=== PATIENT | female | born 1930 | race Caucasian/White ===

== ENCOUNTER 2016-11-18 14:02 | Inpatient (IN) | payer OTHER, MEDICARE ==
[2016-11-18] MEDS ORDERED: NORMAL SALINE 10 ML SYRINGE FLUSH IVP PRN ×2 (14:21→18:09)
[2016-11-18] MEDS ORDERED: Sodium Chloride 0.9% 1,000 ML PRIMARY IV ONE (14:21)
--- NOTE | 2016-11-18 14:32 | PDOC ---
General Adult HPI - General Chief Complaint: Abdomen Pain Stated Complaint: C-DIFF, NAUSEA Date Seen by Provider: 11/18/16 Time Seen by Provider: 14:20 Source: POSITIVE: Patient, Other (daughter) Exam Limitations: POSITIVE: No limitations Nurse's Notes Reviewed & Considered: Yes - History of Present Illness Initial Comment: The patient is an 86-year-old female who is brought to the emergency department with complaints of increased weakness and continued diarrhea. She states that she has had issues with loose watery stools since September. She was diagnosed with C. difficile last week and started on metronidazole. She took the metronidazole for a total of 3 days however she discontinued the medication because she thought that it was upsetting her stomach worse and causing increased diarrhea and fevers. She has not taken any of the metronidazole the last couple of days. She went to Ivett Henao's office for follow-up today. Their she had a low-grade fever with a temperature of 100.1. She appeared to be clinically dehydrated and her blood pressure was only in the 90s. She subsequently was transferred here to the emergency room for evaluation. The patient is vague regarding her history. She does continue to have diarrhea however denies vomiting. She does report some intermittent abdominal pain although none currently. She denies chest pain or shortness of breath, urinary symptoms other than decreased urination. She does have decreased appetite and decreased oral intake. She has significant generalized weakness. Have you received a tetanus shot in the past 10 years?: Unknown - Patient Home Medications Home Medications: Home Medications Alpha Lipoic Acid 300 mg PO DAILY cap 12/27/12 Ascorbic Acid [Vitamin C] 1,000 mg PO TID tab 12/27/12 Calcium/Magnesium [Calcium Magnesium Tablet] 1 each PO BID tab 12/27/12 Flaxseed 340 gm PO DAILY scoop 12/27/12 Multivitamin [Daily Vitamin] 1 tab ORAL QD tab 12/27/12 Ubidecarenone [Coq-10] 30 mg PO DAILY cap 12/27/12 Cholecalciferol (Vitamin D3) [Vitamin D3] 2,000 unit PO BID #0 cap 04/03/16 Lutein 20 mg PO BID #0 cap 04/03/16 Bilberry Fruit Extract [Bilberry] 80 mg PO DAILY cap 05/21/16 Amlodipine Besylate 1 tab PO QHS #90 tab 11/21/16 Losartan/Hydrochlorothiazide [Losartan-Hctz 100-12.5 Mg Tab] 1 tab PO DAILY #90 tab 10/05/16 Difluprednate [Durezol] 1 drp RIGHT EYE BID 11/18/16 Loperamide [Imodium] 2 mg PO TID PRN 11/18/16 Metronidazole 500 mg PO TID 11/18/16 Moxifloxacin HCl [Vigamox] 1 drp LEFT EYE BID 11/18/16 Simvastatin 20 mg PO BEDTIME 11/18/16 - Patient Allergies Allergies/Adverse Reactions: Allergies Allergy/AdvReac Type Severity Reaction Status Date / Time Penicillins Allergy Intermediate RASH Verified 11/18/16 14:17 seasonal allergies Allergy Mild ITCHING Uncoded 11/18/16 14:17 Past Medical History - heen HEENT History: Macular Degeneration Cardiovascular History: Hypertension, Hyperlipidemia, Other (please comment) Additional Cardiovasular History: HEART MURMUR Respiratory History: Snoring Gastrointestinal History: Other (please comment) Additional Gastrointestinal History: DYSPHAGIA. DIFFICULTY SWALLOWING FOR SEVERAL YEARS, Genitourinary History: Denies History Endocrine History: Denies History Musculoskeletal History: Osteoporosis, Osteoarthritis Additional Musculoskeletal History: ARTHRITIS R HIP; OSTEOPOROSIS SINCE 2003; COMPRESSION FX T-11 IN 2003; FX OF BOTH WRISTS Neurological History: Denies History Blood Disorders: Denies History Psychiatric History: Denies History History of Sexually Transmitted Diseases: No Female Reproductive History: Denies History Obstetrical History: Denies History Cancer History: Skin Cancer Treatment / Date(s) of Treatment: SKIN REMOVAL In Past Year Been Physically Harmed or Verbally Threatened: No History of MDRO: No History of Other Communicable Diseases: No Tobacco Use: Never Smoker Alcohol Use: Rarely Substance Use Type: None Previous Surgical History: Yes Type / Date of Surgery: RIGHT AND LEFT WRIST PINNINGS (1994 FOR R, AND 1999 FOR LEFT). MICHELLE CATARACTS Anesthesia Reactions: No Malignant Hyperthermia: No Significant Family History: Heart disease, Hypertension, Other (please comment) Additional Family History: ALCOHOLISM/ CVA; HTN-FATHER; CHF, BROTHER. BOTH . Past Medical History Reviewed: Reviewed - No Changes ROS - Limitations ROS Limitations: No Limitations Constitution: REPORTS: Fever Cardiovascular: REPORTS: Denies Cardiac Symptoms Respiratory: REPORTS: Denies Resp Symptoms, Other (She was slightly hypoxic on arrival and was placed on oxygen per nasal cannula.) Neurological: REPORTS: Denies Neuro Symptoms Gastrointestinal: REPORTS: Abdominal Pain, Nausea, Diarrhea. DENIES: Vomitting , Black Stools, Bloody Stools Musculoskeletal: REPORTS: Denies MS Symptoms Genitourinary: REPORTS: Other (Decreased urination). DENIES: Dysuria, Difficulty Urinating Eyes: REPORTS: Denies Symptoms ENT: REPORTS: Denies Symptoms Skin: DENIES: Rash General Adult Exam - General Appearance General Appearance: POSITIVE: Alert, Cooperative, No Acute Distress, Other (She does appear ill) - HEENT HEENT: POSITIVE: Head Inspection Nml, Eyes Inspection Nml, Ears Inspection Nml, Pharynx Inspect. Nml, Dry Mucous Membranes - Neck Neck: POSITIVE: Normal Inspection. NEGATIVE: Lymphadenopathy - Respiratory Respiratory: POSITIVE: No Respiratory Distress, Breath Sounds Normal - Cardiovascular Cardiovascular: POSITIVE: Regular Rate & Rhythm, No Murmur - Abdomen Abdomen: Soft: (All Quadrants), Normal Bowel Sounds: (All Quadrants), No Guarding: (All Quadrants), No Rebound: (All Quadrants), No Palpabale Mass: (All Quadrants) Additional Abdominal Details: Her abdomen is mildly distended, she denies tenderness on exam. - Skin Skin: POSITIVE: Normal Color, No Rash - Extremities Extremity: Normal ROM: (All Extremities), Normal Inspection: (All Extremities) - Neurological / Psychological Neurological: POSITIVE: Other (No focal neurologic deficits.) General Adult Progress - Results Reviewed by me Xrays/CTs/US Reviewed by me: Yes Discussed with Radiologist: Yes Radiology Findings: Portable chest x-ray shows mild cardiomegaly with no other acute findings per radiologist. CT PE protocol is negative for PE, she does have some atelectasis in the lung bases, no other acute findings per radiologist. CT of the abdomen and pelvis shows liquid within the bowel with no other acute findings per radiologist. Lab Results Reviewed: Yes Lab Results:: Laboratory Results 11/18/16 Range/Units 14:36 WBC 6.10 (4.8-10.8) 10^3/uL RBC 4.10 L (4.20-5.40) 10^6/uL Hgb 13.3 (12.0-16.0) g/dL Hct 38.6 (37.0-47.0) % MCV 94.1 (81-99) FL MCH 32.4 H (27-31) PG MCHC 34.5 (33-37) g/dL RDW Std Deviation 43.3 (39-50) fL RDW Coeff of Dena 13.0 (11.5-14.5) % Plt Count 154 (140-350) 10*3/uL MPV 9.4 (7.4-12.2) FL Immature Gran % (Auto) 0.7 (0-5) % Neut % (Auto) 69.7 (50-80) % Lymph % (Auto) 9.8 L (10-50) % [place] % (Auto) 9.8 (5-15) % Eos % (Auto) 9.5 H (0-8) % Baso % (Auto) 0.5 (0-1) % Immature Gran # (Auto) 0.04 10*3/UL Neut # (Auto) 4.25 10*3/UL Lymph # (Auto) 0.60 10*3/uL [place] # (Auto) 0.60 (0.3-0.8) 10*3/UL Eos # (Auto) 0.58 10*3/UL Baso # (Auto) 0.03 10*3/UL WBC Morphology Comment Normal morphology (NORM) Plt Morphology Comment Normal morphology (NORM) RBC Morph Comment Normal morphology (NORM) D-Dimer 15.81 H (0.00-0.59) mg/L Sodium 127 L (135-145) meq/L Potassium 3.3 L (3.8-5.2) meq/L Chloride 91 L (98-112) meq/L Carbon Dioxide 28 (23-33) meq/L Anion Gap 8 (5-20) BUN 28 H (7-22) mg/dL Creatinine 0.8 (0.50-1.20) mg/dL Estimated GFR Group Activities Aide BUN/Creatinine Ratio 35.00 H (6-20) Glucose 93 (78-110) mg/dL Calculated Osmolality 269.0 (267-292) mOsm/kg Lactic Acid 0.8 (0.70-2.10) MMOL/L Calcium 8.1 L (8.7-10.7) mg/dL Magnesium 2.1 (1.6-2.4) mg/dL Total Bilirubin 0.8 (0.3-1.2) mg/dL AST 37 (8-39) IU/L ALT 42 (9-52) IU/L Alkaline Phosphatase 40 (38-126) IU/L Troponin I 0.030 (< 0.040) ng/mL C-Reactive Protein 1.6 H (0.0-0.9) mg/dL Total Protein 6.2 (6.1-8.0) g/dL Albumin 3.4 L (3.5-4.8) g/dL Globulin 2.8 (2.50-4.10) g/dL Albumin/Globulin Ratio 1.20 L (1.3-2.0) mg/g - Patient's Progress MDM / ED Course: She was slightly hypoxic on arrival and was placed on O2 per nasal cannula. An IV was established and blood cultures/lactate were drawn. She received 1 L bolus of normal saline. Lab work revealed a markedly elevated d-dimer. Her sodium, potassium and calcium were also low. A CT PE protocol was ordered and was negative for PE. She did have atelectasis in the lung bases which may explain her hypoxia. In addition CT scan of the abdomen and pelvis revealed no acute findings other than liquid within the bowel. She does have known C. difficile. She also appears to be clinically dehydrated and her sodium and potassium are low. She is quite weak as well. She will be admitted for continued hydration and further treatment of C. difficile. Dr. Lynch has agreed to admit the patient. The patient and her family are in agreement with this plan. - Consult Counseled: POSITIVE: Patient, Family, RE: Lab Results, RE: Radiology Results, RE : DX Patient Care Time - Estimated PCT Patient Care Time (In Minutes): 45 Vital Signs - Recent Vital Signs Vital Signs: Vital Signs (Last 8 hours) Temp Pulse Resp BP Pulse Ox 11/18/16 14:03 98.2 F 77 20 98/65 92 - VS Reviewed Vital Signs Reviewed: Yes Discharge Clinical Impression: C. difficile diarrhea, Dehydration, Generalized weakness, Hyponatremia, Hypokalemia Discharge Disposition: Admit to Inpatient Condition: Fair Date Decision to Admit to Inpatient: 11/18/16 Time Decision to Admit to Inpatient: 16:50
[2016-11-18 14:38] LABS: BASOPHILS # (AUTO) 0.03 10*3/UL; BASOPHILS % (AUTO) 0.5 % (0-1); EOSINOPHILS % (AUTO) 9.5 % (0-8); HEMATOCRIT 38.6 % (37.0-47.0); HEMOGLOBIN 13.3 g/dL (12.0-16.0); IMM GRAN % (AUTO) 0.7 % (0-5); IMM GRAN# (AUTO) 0.04 10*3/UL; LYMPHOCYTES % (AUTO) 9.8 % (10-50); MEAN CORPUSCULAR HEMOGLOBIN 32.4 PG (27-31); MEAN CORPUSCULAR HGB CONC 34.5 g/dL (33-37); MEAN PLATELET VOLUME 9.4 FL (7.4-12.2); MONOCYTES % (AUTO) 9.8 % (5-15); NEUTROPHILS # (AUTO) 4.25 10*3/UL; NEUTROPHILS % (AUTO) 69.7 % (50-80)
[2016-11-18 14:39] LABS: PLATELET MORPHOLOGY COMMENT NORMAL MORPHOLOGY (NORM)
[2016-11-18 14:54] LABS: ASPARTATE AMINO TRANSFERASE 37 IU/L (8-39); BILIRUBIN,TOTAL 0.8 mg/dL (0.3-1.2); BLOOD UREA NITROGEN 28 mg/dL (7-22); CALCIUM 8.1 mg/dL (8.7-10.7); CHLORIDE 91 meq/L (98-112); CREATININE 0.8 mg/dL (0.50-1.20); GLUCOSE 93 mg/dL (78-110); POTASSIUM 3.3 meq/L (3.8-5.2); SODIUM 127 meq/L (135-145); TOTAL PROTEIN 6.2 g/dL (6.1-8.0)
[2016-11-18 14:55] LABS: C-REACTIVE PROTEIN 1.6 mg/dL (0.0-0.9); LACTATE 0.8 MMOL/L (0.70-2.10); MAGNESIUM 2.1 mg/dL (1.6-2.4)
--- NOTE | 2016-11-18 14:59 | DI ---
XR CXR 1VW,11/18/2016 2:23 PM: Clinical History: Shortness of breath. Previous Exam: January 30, 2007 Findings: A single frontal radiograph of the chest is obtained, and demonstrates mild cardiomegaly. The lungs a re clear. The bony thorax is unremarkable. Impression: Mild cardiomegaly otherwise unremarkable.
--- NOTE | 2016-11-18 16:10 | DI ---
CT ABD W/CN AND PELVIS W/CN,11/18/2016 3:04 PM: Clinical History: Fever, abdominal pain and diarrhea. Previous Exam: September 17, 2015 bone density Findings: Multiple helically acquired CT images are obtained through the abdomen and pelvis following the admin istration of intravenous contrast. The urinary bladder is unremarkable. The uterus and ovaries are also unremarkable. The spleen, adrenals, liver and gallbladder are unremarkable. There are multiple bilateral simple renal cysts. There are also multiple renal hypodensities which ar e too small to characterize. The pancreas is unremarkable. There is cardiomegaly noted and coronary artery calcifications. There is some small pleural effusions and subsegmental atelectasis. Diffuse degenerative changes are noted. There is a compression deformity of the T11 vertebral body. Diffuse peripheral vascular calcifications are seen. There is no mesenteric nor retroperitoneal lymphadenopathy. Impression: 1. No acute intra-abdominal pathology. 2. Multiple bilateral renal cysts. 3. There is a compression deformity of the T11 vertebral body.
--- NOTE | 2016-11-18 16:24 | DI ---
CT CTA CHEST NONCORONARY W/WO,11/18/2016 3:04 PM: Clinical History: Hypoxia and elevated d-dimer. Previous Exam: None at this facility. Findings: Multiple helically acquired CT images are obtained through the chest following the intravenous admini stration of 75 cc of Isovue 300. The thyroid is unremarkable. Degenerative changes of the shoulders and acromioclavicular joints are seen. Degenerative changes of the posterior articulating facets are noted as well. There is mild diffuse osteopenia of the thoracic spine. There is subsegmental atelectasis in the lung bases and small bilateral pleural effusions. There is cardiomegaly and coronary artery disease. The aorta is unremarkable. The pulmonary arteries are normal without filling defect or truncation. Impression: 1. Mild subsegmental atelectasis in the lung bases. 2. No evidence of pulmonary embolism.
--- NOTE | 2016-11-18 17:37 | EKG ---
[address] [address] Measurements Intervals [place] Rate: 74 P: 58 WV: 185 QRS: -3 QRSD: 120 T: 49 QT: 402 QTc: 429 Interpretive Statements SINUS RHYTH INTRAVENTRICULAR CONDUCTION DELAY No previous ECG available for comparison Electronically Signed On 11-19-16 09:08:32 MST by Zaid Zaldivar [email or web address]
--- NOTE | 2016-11-18 18:26 | PDOC ---
History and Physical - History of Present Illness Date and Time of Service: 11/18/2016 6 PM Chief Complaint: Weakness and decreased appetite the last 3 days, diarrhea since September 24 History of Present Illness: This is a 86 years old female with medical history significant for history of hypertension, hyperlipidemia, osteoporosis, cataract and macular degeneration who came into the hospital because of weakness that's been going on for 3 days and also decreased appetite. She said that she started to have diarrhea probably September 24 about once or twice bowel movements a day no bleeding and no abdominal pain she did not see anybody about it until last week when she saw Dr. Castelan she had stool test and that showed C. difficile she was started on metronidazole on Wednesday however she started to develop nausea and she didn't feel well with weakness and decreased appetite so she quit taking the medication yesterday. Because she continued to feel weak and not feeling well she came into the ER. Evaluation in the ER revealed hyponatremia and hypokalemia and hence the admission. She is denying abdominal pain, no chest pain, no shortness of breath. Past Medical History Medical History: 1. Hypertension. 2. Osteoporosis. 3. Hyperlipidemia. 4. Macular degeneration. 5. Recent cataract surgery Surgical History: 1. Cataract surgery. 2. History of wrist fracture Family History: Reviewed an Not Pertinent Past Social History: She lives by herself, doesn't smoke doesn't drink. She is independent with her activities. Tobacco Use: Never Smoker Substance Use Type: None Alcohol Use: None Medication / Allergies Home Medications: Home Medications Medication Instructions Recorded Confirmed Type Alpha Lipoic Acid 300 mg PO DAILY cap 12/27/12 11/18/16 History Ascorbic Acid [Vitamin C] 1,000 mg PO TID tab 12/27/12 11/18/16 History Calcium/Magnesium [Calcium 1 each PO BID tab 12/27/12 11/18/16 History Magnesium Tablet] Flaxseed 340 gm PO DAILY scoop 12/27/12 11/18/16 History Multivitamin [Daily Vitamin] 1 tab ORAL QD tab 12/27/12 11/18/16 History Ubidecarenone [Coq-10] 30 mg PO DAILY cap 12/27/12 11/18/16 History Cholecalciferol (Vitamin D3) 2,000 unit PO BID #0 cap 04/03/11/18/16 Clinic [Vitamin D3] Lutein 20 mg PO BID #0 cap 04/03/16 11/18/16 Clinic Bilberry Fruit Extract [Bilberry] 80 mg PO DAILY cap 05/21/16 11/18/16 History Amlodipine Besylate 1 tab PO QHS #90 tab 10/05/16 11/18/16 Clinic Losartan/Hydrochlorothiazide 1 tab PO DAILY #90 tab 10/05/16 11/18/16 Clinic [Losartan-Hctz 100-12.5 Mg Tab] Difluprednate [Durezol] 1 drp RIGHT EYE BID 11/18/16 11/18/16 History Loperamide [Imodium] 2 mg PO TID PRN 11/18/16 11/18/16 History Metronidazole 500 mg PO TID 11/18/16 11/18/16 History Moxifloxacin HCl [Vigamox] 1 drp LEFT EYE BID 11/18/16 11/18/16 History Simvastatin 20 mg PO BEDTIME 11/18/16 11/18/16 History Allergies/Adverse Reactions: Allergies Allergy/AdvReac Type Severity Reaction Status Date / Time Penicillins Allergy Intermediate RASH Verified 11/19/16 06:38 seasonal allergies Allergy Mild ITCHING Uncoded 11/19/16 06:38 Review of Systems - Review of Systems All Systems: Reviewed & No Additional Complaints Except as Stated Exam - Vitals Vital Signs: Vital Signs Temperature 98.6 F Temperature Source Temporal Artery Scan Pulse Rate 78 Respiratory Rate 20 Blood Pressure 95/58 Pulse Ox 95 Height 5 ft 1 in Weight 168 lb 4.8 oz - General General Appearance: POSITIVE: No Acute Distress, Cooperative - Head Head Exam: POSITIVE: Normal Inspection, Atraumatic - Eye Eye Exam: POSITIVE: Normal Appearance - ENT ENT Exam: POSITIVE: Normal Exam - Neck Neck Exam: POSITIVE: Normal Inspection - Respiratory Respiratory Exam: POSITIVE: Clear to Auscultation - Bilaterally - Cardiovascular Cardiovascular Exam: POSITIVE: RRR - GI/Abdominal GI/Abdominal Exam: POSITIVE: Normal Bowel Sounds, Non Tender, Non Distended, Soft - Rectal Rectal Exam: POSITIVE: Deferred - External Exam: POSITIVE: Deferred - Extremities Extremities Exam: POSITIVE: Normal Inspection - Back Back Exam: POSITIVE: Normal Inspection - Neurological Neurological Exam: POSITIVE: Alert, Oriented x 3, CN II-XII Intact, Moves All Extremities Equally - Psychiatric Psychiatric Exam: POSITIVE: Normal Affect Results - Labs CBC and BMP: 11/19/16 06:25 11/19/16 06:25 Assessment and Plan - Patient Problems (1) Dehydration Current Visit: Yes Status: Acute Comment: Probably secondary to C. difficile infection will continue hydration repeat her labs tomorrow. (2) C. difficile diarrhea Current Visit: Yes Status: Acute Comment: She did not tolerate the metronidazole will put her on vancomycin (3) Hypokalemia Current Visit: Yes Status: Acute Comment: Will replace her electrolytes (4) Hyponatremia Current Visit: Yes Status: Acute Comment: Secondary to dehydration I think it will improve with hydration. (5) Hypertension Current Visit: Yes Status: Acute Comment: I think we'll hold her blood pressure medications and see what's her blood pressure tomorrow and then will decide about when to restart her medications
[2016-11-18] MEDS: Vancomycin Oral Soln 125 MG/5 ML (7500MG/300ML) BOTTLE PO SCH (19:19)
[2016-11-18] MEDS: LUTEIN 20 MG PO SCH (20:55)
[2016-11-18] MEDS: MOXIFLOXACIN LEFT EYE SCH (20:56)
[2016-11-18] MEDS: DIFLUPREDNATE RIGHT EYE SCH (20:56)
[2016-11-18] MEDS: Simvastatin Tab 20 MG TAB PO SCH (21:39)
[2016-11-19] MEDS: Vancomycin Oral Soln 125 MG/5 ML (7500MG/300ML) BOTTLE PO SCH ×4 (00:40→17:46)
[2016-11-19 06:49] LABS: BASOPHILS # (AUTO) 0.02 10*3/UL; BASOPHILS % (AUTO) 0.4 % (0-1); EOSINOPHILS % (AUTO) 19.2 % (0-8); HEMATOCRIT 34.8 % (37.0-47.0); HEMOGLOBIN 11.7 g/dL (12.0-16.0); IMM GRAN % (AUTO) 0.2 % (0-5); IMM GRAN# (AUTO) 0.01 10*3/UL; LYMPHOCYTES # (AUTO) 0.75 10*3/uL; LYMPHOCYTES % (AUTO) 15.8 % (10-50); MEAN CORPUSCULAR HEMOGLOBIN 31.9 PG (27-31); MEAN CORPUSCULAR HGB CONC 33.6 g/dL (33-37); MEAN PLATELET VOLUME 9.2 FL (7.4-12.2); MONOCYTES # (AUTO) 0.62 10*3/UL (0.3-0.8); MONOCYTES % (AUTO) 13.1 % (5-15); NEUTROPHILS # (AUTO) 2.44 10*3/UL; NEUTROPHILS % (AUTO) 51.3 % (50-80); RDW COEFFICIENT OF VARIATION 13.2 % (11.5-14.5); RED BLOOD COUNT 3.67 10^6/uL (4.20-5.40); WHITE BLOOD COUNT 4.75 10^3/uL (4.8-10.8)
[2016-11-19 06:56] LABS: PLATELET MORPHOLOGY COMMENT NORMAL MORPHOLOGY (NORM)
[2016-11-19 07:10] LABS: BLOOD UREA NITROGEN 21 mg/dL (7-22); CHLORIDE 101 meq/L (98-112); CREATININE 0.6 mg/dL (0.50-1.20); GLUCOSE 79 mg/dL (78-110); POTASSIUM 3.3 meq/L (3.8-5.2); SODIUM 130 meq/L (135-145)
[2016-11-19 07:11] LABS: CALCIUM 7.2 mg/dL (8.7-10.7)
--- NOTE | 2016-11-19 08:48 | PDOC(PROG) ---
Date and Time of Service: 11/19/2016 8:48 AM Interval History: Subjective Patient still feeling weak, no bowel movement yet though. No vomiting. No abdominal pain. Objective : Data - Labs CBC and BMP: 11/19/16 06:25 11/19/16 06:25 Labs - Last 24 Hours: Laboratory Results 11/19/16 Range/Units 06:25 WBC 4.75 L (4.8-10.8) 10^3/uL RBC 3.67 L (4.20-5.40) 10^6/uL Hgb 11.7 L (12.0-16.0) g/dL Hct 34.8 L (37.0-47.0) % MCV 94.8 (81-99) FL MCH 31.9 H (27-31) PG MCHC 33.6 (33-37) g/dL RDW Std Deviation 44.0 (39-50) fL RDW Coeff of Dena 13.2 (11.5-14.5) % Plt Count 148 (140-350) 10*3/uL MPV 9.2 (7.4-12.2) FL Immature Gran % (Auto) 0.2 (0-5) % Neut % (Auto) 51.3 (50-80) % Lymph % (Auto) 15.8 (10-50) % [place] % (Auto) 13.1 (5-15) % Eos % (Auto) 19.2 H (0-8) % Baso % (Auto) 0.4 (0-1) % Immature Gran # (Auto) 0.01 10*3/UL Neut # (Auto) 2.44 10*3/UL Lymph # (Auto) 0.75 10*3/uL [place] # (Auto) 0.62 (0.3-0.8) 10*3/UL Eos # (Auto) 0.91 10*3/UL Baso # (Auto) 0.02 10*3/UL WBC Morphology Comment Normal morphology (NORM) Plt Morphology Comment Normal morphology (NORM) RBC Morph Comment Normal morphology (NORM) Sodium 130 L (135-145) meq/L Potassium 3.3 L (3.8-5.2) meq/L Chloride 101 (98-112) meq/L Carbon Dioxide 25 (23-33) meq/L Anion Gap 4 L (5-20) BUN 21 (7-22) mg/dL Creatinine 0.6 (0.50-1.20) mg/dL Estimated GFR Podopediatrician BUN/Creatinine Ratio 35.00 H (6-20) Glucose 79 (78-110) mg/dL Calculated Osmolality 271.0 (267-292) mOsm/kg Calcium 7.2 L (8.7-10.7) mg/dL Objective : Exam - General General Appearance: No Acute Distress, Cooperative - Head Head Exam: Normal Inspection - Eye Eye Exam: Normal Appearance - ENT ENT Exam: Normal Exam - Neck Neck Exam: Normal Inspection - Respiratory Respiratory Exam: Clear to Auscultation - Bilaterally - Cardiovascular Cardiovascular Exam: RRR - GI/Abdominal GI/Abdominal Exam: Normal Bowel Sounds, Non Tender, Non Distended, Soft - Rectal Rectal Exam: Deferred - External Exam: Deferred - Extremities Extremities Exam: Normal Inspection - Back Back Exam: Normal Inspection - Neurological Neurological Exam: Alert - Psychiatric Psychiatric Exam: Normal Affect Assessment and Plan - Patient Problems (1) Dehydration Current Visit: Yes Status: Acute Comment: We will start cutting back on her fluid. (2) C. difficile diarrhea Current Visit: Yes Status: Acute Comment: Continue the vancomycin, she seemed to tolerate that. (3) Hypokalemia Current Visit: Yes Status: Acute Comment: Potassium still low will add oral potassium (4) Hyponatremia Current Visit: Yes Status: Acute Comment: It's improving. (5) Hypertension Current Visit: Yes Status: Acute Comment: Continue holding her blood pressure medications
[2016-11-19] MEDS ORDERED: AmLODIPine Tab 2.5 MG TABLET PO SCH (09:00)
[2016-11-19] MEDS: POTASSIUM CHLORIDE 20 MEQ TAB PO SCH ×2 (09:29→20:28)
[2016-11-19] MEDS: Multivitamin Tab 1 TAB PO SCH (09:29)
[2016-11-19] MEDS: DIFLUPREDNATE RIGHT EYE SCH ×2 (09:33→20:28)
[2016-11-19] MEDS: MOXIFLOXACIN LEFT EYE SCH (09:34)
[2016-11-19] MEDS: LUTEIN 20 MG PO SCH ×2 (12:11→20:28)
[2016-11-19] MEDS: Simvastatin Tab 20 MG TAB PO SCH (20:28)
[2016-11-20] MEDS: Vancomycin Oral Soln 125 MG/5 ML (7500MG/300ML) BOTTLE PO SCH ×4 (01:18→19:06)
[2016-11-20 06:54] LABS: CALCIUM 7.3 mg/dL (8.7-10.7); CREATININE 0.5 mg/dL (0.50-1.20); POTASSIUM 3.8 meq/L (3.8-5.2)
[2016-11-20] MEDS: ENOXAPARIN SODIUM 30 MG/0.3 ML SYRINGE SUBCUT SCH (08:49)
[2016-11-20] MEDS: Multivitamin Tab 1 TAB PO SCH (08:49)
[2016-11-20] MEDS: LUTEIN 20 MG PO SCH ×2 (08:49→20:50)
[2016-11-20] MEDS: DIFLUPREDNATE RIGHT EYE SCH ×2 (08:49→20:50)
[2016-11-20] MEDS: POTASSIUM CHLORIDE 20 MEQ TAB PO SCH ×2 (08:49→20:49)
--- NOTE | 2016-11-20 09:07 | PDOC(PROG) ---
Date and Time of Service: 11/20/2016 9 AM Interval History: Subjective She feels better compared to when she came in. She still have the diarrhea though. She had 3 bowel movements yesterday and not as loose as before. No blood. Objective : Data - Labs CBC and BMP: 11/19/16 06:25 11/20/16 06:00 Labs - Last 24 Hours: Laboratory Results 11/20/16 Range/Units 06:00 Sodium 133.0 L (135-145) meq/L Potassium 3.8 (3.8-5.2) meq/L Chloride 105.0 (98-112) meq/L Carbon Dioxide 22.0 L (23-33) meq/L Anion Gap 6.0 (5-20) BUN 12.0 (7-22) mg/dL Creatinine 0.5 (0.50-1.20) mg/dL Estimated GFR Habitat Management Coordinator BUN/Creatinine Ratio 24.00 H (6-20) Glucose 78.0 (78-110) mg/dL Calculated Osmolality 274.30 (267-292) mOsm/kg Calcium 7.3 L (8.7-10.7) mg/dL Objective : Exam - General General Appearance: No Acute Distress, Cooperative - Head Head Exam: Normal Inspection - Eye Eye Exam: Normal Appearance - ENT ENT Exam: Normal Exam - Neck Neck Exam: Normal Inspection - Respiratory Respiratory Exam: Clear to Auscultation - Bilaterally - Cardiovascular Cardiovascular Exam: RRR - GI/Abdominal GI/Abdominal Exam: Normal Bowel Sounds, Non Tender, Non Distended, Soft - Rectal Rectal Exam: Deferred - External Exam: Deferred - Extremities Extremities Exam: Normal Inspection - Back Back Exam: Normal Inspection - Neurological Neurological Exam: Alert, Oriented x 3, CN II-XII Intact, Moves All Extremities Equally - Psychiatric Psychiatric Exam: Normal Affect Assessment and Plan - Patient Problems (1) Dehydration Current Visit: Yes Status: Acute Comment: Continue fluid but at a lower rate (2) C. difficile diarrhea Current Visit: Yes Status: Acute Comment: Continue vancomycin. (3) Hypokalemia Current Visit: Yes Status: Acute Comment: This is resolved (4) Hyponatremia Current Visit: Yes Status: Acute Comment: This is improved (5) Hypertension Current Visit: Yes Status: Acute Comment: Continue holding her blood pressure medications (6) Elevated d-dimer Current Visit: Yes Status: Acute Comment: Unclear reason may be secondary to the inflammation. Her CTs were negative for PE. Will put her on prophylactic dose Lovenox. Will order ultrasound of her legs although seems less likely as there is no swelling in her legs
--- NOTE | 2016-11-20 10:56 | OT.PROG ---
Progress Note Progress Note: S: "I am weak and glad to be here, I did not feel safe at home." O: Pt. seen from 45 to 0 with pt. completing 3 sets of 10 overhead reaches using her cane with 3 min rest breaks inbetween. Reviewed spinal motions with pt. and completing 3 sets of 5 rotation R and L, lateral side-bending R and L, and flexion/extension. Pt. then taking 2 minute rest breaks inbetwen sets. pt. then completing 2 sets of 5 upper rectus strengthening exercise seated in her recliner chair in her room. Pt then completed sit to stand transfer with min A and ambulating to the bathroom to [facility] and completing toileting with supervision due to decreased safety and dynamic balance deficits. A: Pt. fatigued at the end of tx session and stating that she did not have any pain present. Pt. on C-diff precautions. P: Continue POC. Bernice Pemberton OTD, OTR/L
--- NOTE | 2016-11-20 11:34 | PT.PROG ---
Progress Note Progress Note: S. Patient stated that she is tired after working with OT. O. Patient ambulated 30 feet around the room. She performed sit to stands x 3. she was left in bed with alarm and call light. A. Patient requires min assist with balance during ambulation. Patient tolerated ambulation well, she struggles with balance and endurance. Patient would continue to benefit from skilled therapy at this time. P. Continue POC.
[2016-11-20] MEDS: ACIDOPHILUS/BULGARICUS CHEWABLE TABLET PO SCH (11:49)
--- NOTE | 2016-11-20 12:15 | PTI REPORT ---
Thank you for the referral of Rocio Aly. She was seen on 11/19/16 for an inpatient evaluation secondary to generalized weakness. SUBJECTIVE: The patient is an 86-year-old female. The patient reports she came to the ER yesterday due to feeling very weak and generally miserable. She states she has been having diarrhea consistently since early September. She states she lives at home by herself and was not using any type of assistive device or on any oxygen; however, approximately two to three days prior to coming to the emergency room she did get her single point cane out due to fear of falling. PAST MEDICAL HISTORY: Past medical history can be found in the patient's medical record. OBJECTIVE FINDINGS: Pain: The patient denies any pain at this time. Bed mobility: The patient is able to perform bed mobility with stand by assist from supine to edge of bed and edge of bed to supine. Transfers: The patient is able to perform sit to stand transfers with contact guard assist. Range of motion: Her upper extremity and lower extremity range of motion are within functional limits. Strength: Lower extremity strength at best is 4-/5 as tested in an unsupported seated position at edge of bed. Ambulation: The patient is able to perform modified tandem walking with the use of hand hold assist. Balance: The patient's standing ambulatory balance at best is fair with the use of an assistive device. ASSESSMENT: Problem List: Decreased safety Decreased strength Decreased endurance Physical Therapy Goals: To be met by discharge from inpatient: Patient will be able to perform all bed mobility and transfers independently with proper safety awareness with appropriate assistive device. Patient will be able to ambulate up to 100 feet with appropriate assistive device for household ambulation. Patient will tolerate up to 30 minutes of activity in order to return home to be independent with all prior levels of function and return to baseline level of function. TREATMENT PLAN: Patient will be seen B.I.D during the week and one time per day over the weekend as an inpatient to address the above goals and objectives. INITIAL TREATMENT: Treatment today consisted of the initial evaluation followed by the patient performing bed mobility with stand by assist from supine to edge of bed. She was able to perform sit to stand activities and tandem standing activities without oxygen on, maintaining oxygen saturation above 90% with verbal cues for pursed lipped breathing. Due to the patient's diagnosis of c.diff she will not be taken outside of her room until give the okay by her physician. ALAN
--- NOTE | 2016-11-20 16:11 | OTI REPORT ---
Thank you for the referral of Rocio Aly. She was seen on 11/19/16 for an occupational therapy inpatient evaluation secondary to weakness. SUBJECTIVE: The patient is an 86-year-old female who has had diarrhea since September 24, 2016. She says that it has become increasingly worse over the last couple of weeks. The patient [place] She does most activities on her own including dressing herself, showering, bathing, cooking her own meals, and completing house tasks. The patient reports she has not been out of bed all day today and this was at 4:30 in the afternoon. PAST MEDICAL HISTORY: Past medical history can be found in the patient's medical record. OBJECTIVE FINDINGS: Bed mobility: The patient was able to come from supine to sit with min assist. Range of motion: The patient demonstrates upper extremity range of motion that is within normal limits. Endurance: The patient does fatigue easily. Her activity tolerance is fair to poor at this time. Strength: The patient demonstrated shoulder strength of 3+/5, elbow strength of 4/5, and wrist strength of 3+/5. Pain: The patient states that her pain is mainly coming from her stomach but she is feeling better now that she started her new antibiotic. Transfers: The patient is able to transfer from sit to stand with min assist. Ambulation: The patient is able to ambulate with contact guard assist for balance. Activities of daily living: While sitting edge of bed the patient was able to complete manually resisted exercises. She was able to don and doff her socks independently. ASSESSMENT: The patient's main concern is her strength and activity tolerance. Short-Term Goals: To be met by discharge from inpatient: Patient will be able to dress self including obtaining clothes from closet independently while keeping balance. Patient will improve upper extremity strength to 4+/5 to improve abilities for functional transfers. Patient will be able to complete a shower independently and safely. Patient will learn three energy conservation techniques in order to conserve energy. Long-Term Goals: To be met following discharge from inpatient: Patient will be discharged home and or with family for a while and will be independent with all functional transfers and ADLs. TREATMENT PLAN: Patient will be seen B.I.D during the week and one time per day over the weekend as an inpatient to address the above goals and objectives. INITIAL TREATMENT: Treatment today consisted of the initial evaluation followed by the patient coming from supine to sit with min assist. While sitting edge of bed she completed manual resisted exercises including shoulder flexion, extension, adduction, and abduction, elbow flexion/extension, and wrist flexion/extension. She completed turning activities and reached a Kleenex from the floor. She was able to don and doff socks and completed a sit to stand transfer with stand by assist and transferred to her chair. At the end of the session, the patient' s chair alarm was placed on and her call button was left within reach. ALAN
--- NOTE | 2016-11-20 16:11 | PT.PROG ---
Progress Note Progress Note: S. Patient stated that she is feeling better today compared to yesterday. She agreed to do therapy in her room. O. Patient performed seated exercises in the form of; marches, long arc quads, heel toe raises, resisted knee flexion, clamshells, pillow squeezes, and sit to stands all x 10 bilaterally. Patient was left in chair with alarm and call light. A. Patient tolerated exercise well, she was able to tolerate more exercises today compared to yesterday. She continues fatigue easily however is able to recover after short seated rest breaks. Patient would continue to benefit from skilled therapy to increase strength, mobility and endurance. P. continue POC.
--- NOTE | 2016-11-20 18:02 | DI ---
HISTORY: Elevated d-dimer. TECHNIQUE: Ultrasound images of the extremities were performed bilaterally and submitted for interpr etation. FINDINGS: There is normal compressibility with color flow. There is normal phasicity with respirati on and augmentation on the dynamic maneuvers. IMPRESSION: 1. No evidence of deep venous thrombosis.
[2016-11-20] MEDS: Simvastatin Tab 20 MG TAB PO SCH (20:49)
[2016-11-21] MEDS: Vancomycin Oral Soln 125 MG/5 ML (7500MG/300ML) BOTTLE PO SCH ×4 (00:20→17:55)
[2016-11-21 05:57] LABS: IMM GRAN % (AUTO) 0.6 % (0-5); IMM GRAN# (AUTO) 0.03 10*3/UL
[2016-11-21 06:07] LABS: BASOPHILS # (AUTO) 0.06 10*3/UL; BASOPHILS % (AUTO) 1.2 % (0-1); EOSINOPHILS % (AUTO) 14.6 % (0-8); HEMATOCRIT 37.3 % (37.0-47.0); HEMOGLOBIN 12.7 g/dL (12.0-16.0); LYMPHOCYTES # (AUTO) 1.65 10*3/uL; LYMPHOCYTES % (AUTO) 31.7 % (10-50); MEAN CORPUSCULAR HEMOGLOBIN 32.2 PG (27-31); MEAN PLATELET VOLUME 9.3 FL (7.4-12.2); MONOCYTES % (AUTO) 9.6 % (5-15); NEUTROPHILS # (AUTO) 2.21 10*3/UL; NEUTROPHILS % (AUTO) 42.3 % (50-80); RDW COEFFICIENT OF VARIATION 13.1 % (11.5-14.5); RED BLOOD COUNT 3.95 10^6/uL (4.20-5.40); WHITE BLOOD COUNT 5.21 10^3/uL (4.8-10.8)
[2016-11-21 06:26] LABS: CREATININE 0.5 mg/dL (0.50-1.20); POTASSIUM 4.1 meq/L (3.8-5.2)
[2016-11-21 06:50] LABS: PLATELET MORPHOLOGY COMMENT NORMAL MORPHOLOGY (NORM)
--- NOTE | 2016-11-21 08:42 | PDOC(PROG) ---
Date and Time of Service: 11/21/2016 8:32 AM Interval History: Subjective Patient feels better, no bowel movement yet today. She is tolerating diet. Her strength is somewhat better but she is still weak. Objective : Data - Labs CBC and BMP: 11/21/16 05:49 11/21/16 05:49 Labs - Last 24 Hours: Laboratory Results 11/21/16 Range/Units 05:49 WBC 5.21 (4.8-10.8) 10^3/uL RBC 3.95 L (4.20-5.40) 10^6/uL Hgb 12.7 (12.0-16.0) g/dL Hct 37.3 (37.0-47.0) % MCV 94.4 (81-99) FL MCH 32.2 H (27-31) PG MCHC 34.0 (33-37) g/dL RDW Std Deviation 44.2 (39-50) fL RDW Coeff of Dena 13.1 (11.5-14.5) % Plt Count 166 (140-350) 10*3/uL MPV 9.3 (7.4-12.2) FL Immature Gran % (Auto) 0.6 (0-5) % Neut % (Auto) 42.3 L (50-80) % Lymph % (Auto) 31.7 (10-50) % Valencia % (Auto) 9.6 (5-15) % Eos % (Auto) 14.6 H (0-8) % Baso % (Auto) 1.2 H (0-1) % Immature Gran # (Auto) 0.03 10*3/UL Neut # (Auto) 2.21 10*3/UL Lymph # (Auto) 1.65 10*3/uL Valencia # (Auto) 0.50 (0.3-0.8) 10*3/UL Eos # (Auto) 0.76 10*3/UL Baso # (Auto) 0.06 10*3/UL WBC Morphology Comment See comments (NORM) Plt Morphology Comment Normal morphology (NORM) RBC Morph Comment Normal morphology (NORM) Sodium 133 L (135-145) meq/L Potassium 4.1 (3.8-5.2) meq/L Chloride 103 (98-112) meq/L Carbon Dioxide 24 (23-33) meq/L Anion Gap 6 (5-20) BUN 9 (7-22) mg/dL Creatinine 0.5 (0.50-1.20) mg/dL Estimated GFR (>60 ml/min/1.73m(2)) BUN/Creatinine Ratio 18.00 (6-20) Glucose 95 (78-110) mg/dL Calculated Osmolality 274.0 (267-292) mOsm/kg Calcium 8.0 L (8.7-10.7) mg/dL Objective : Exam - General General Appearance: No Acute Distress, Cooperative - Head Head Exam: Normal Inspection, Atraumatic - Eye Eye Exam: Normal Appearance - ENT ENT Exam: Normal Exam Additonal ENT Exam Details: Some wax noted in her ears - Neck Neck Exam: Normal Inspection - Respiratory Respiratory Exam: Clear to Auscultation - Bilaterally - Cardiovascular Cardiovascular Exam: RRR - GI/Abdominal GI/Abdominal Exam: Normal Bowel Sounds, Non Tender, Non Distended, Soft - Rectal Rectal Exam: Deferred - External Exam: Deferred - Extremities Extremities Exam: Normal Inspection - Back Back Exam: Normal Inspection - Neurological Neurological Exam: Alert, Oriented x 3, CN II-XII Intact, Moves All Extremities Equally - Psychiatric Psychiatric Exam: Normal Affect - Integumentary Integumentary Exam: Normal Color Assessment and Plan - Patient Problems (1) Dehydration Current Visit: Yes Status: Acute Comment: This is resolved we'll DC her fluid (2) C. difficile diarrhea Current Visit: Yes Status: Acute Comment: Continue current treatment (3) Hypokalemia Current Visit: Yes Status: Acute Comment: Resolved (4) Hyponatremia Current Visit: Yes Status: Acute Comment: Stable (5) Hypertension Current Visit: Yes Status: Acute Comment: Blood pressure is coming up I think will restart her blood pressure medication but will lower the dosage of losartan. We DC the HCTZ (6) Elevated d-dimer Current Visit: Yes Status: Acute Comment: Ultrasound is negative ,CT scan is negative, unclear reason question related to the inflammation. (7) DVT prophylaxis Current Visit: Yes Status: Acute Comment: She is on Lovenox
[2016-11-21] MEDS ORDERED: LOSARTAN 50 MG TABLET PO ONE (09:25)
[2016-11-21] MEDS ORDERED: AmLODIPine Tab 2.5 MG TABLET PO ONE (09:25)
[2016-11-21] MEDS ORDERED: POTASSIUM CHLORIDE 20 MEQ TAB PO ONE (09:25)
[2016-11-21] MEDS: AmLODIPine Tab 2.5 MG TABLET PO SCH (09:27)
[2016-11-21] MEDS: LOSARTAN 50 MG TABLET PO SCH (09:27)
[2016-11-21] MEDS: ENOXAPARIN SODIUM 30 MG/0.3 ML SYRINGE SUBCUT SCH (09:28)
[2016-11-21] MEDS: DIFLUPREDNATE RIGHT EYE SCH ×2 (09:28→21:31)
[2016-11-21] MEDS: POTASSIUM CHLORIDE 20 MEQ TAB PO SCH (09:28)
[2016-11-21] MEDS: ACIDOPHILUS/BULGARICUS CHEWABLE TABLET PO SCH (09:28)
[2016-11-21] MEDS: Multivitamin Tab 1 TAB PO SCH (09:28)
[2016-11-21] MEDS: LUTEIN 20 MG PO SCH ×2 (09:28→21:31)
--- NOTE | 2016-11-21 10:10 | OT.PROG ---
Progress Note Progress Note: S: pt wsa in her chair and ready for therapy. Nursing is discussing transferring pt to a swing bed status. pt is unsure how safe she feels going to either of her discharge locations at this time due to limited people available. O: pt completed red theraband exercises in LE 10 reps in knee extension and flexion, hip abduction and adduction, and marches. pt completed UE exercises 10 reps with a red theraband of biceps, rows and shoulder extension. pt completed a toilet transfer with a single point cane with CGA only fair balance , she completed toileting with SBA only for safety. at this point pt reported being very tired. A: pt did well today, her tolerance for activity is still low and would benefit from a swing bed stay to increase her ability to complete all ADL's and IADL's at home [place] in a timely manner. P: cont per POC and move to a swing bed status in the next day
[2016-11-21] MEDS: Simvastatin Tab 20 MG TAB PO SCH (21:31)
[2016-11-22] MEDS: Vancomycin Oral Soln 125 MG/5 ML (7500MG/300ML) BOTTLE PO SCH ×4 (01:37→18:06)
[2016-11-22] MEDS: LOSARTAN 50 MG TABLET PO SCH (07:06)
--- NOTE | 2016-11-22 08:32 | PDOC(PROG) ---
Date and Time of Service: 11/22/2016 8:30 AM Interval History: Subjective Patient's feels better still weak though. She did have a bowel movement still soft. No blood. Objective : Data - Labs CBC and BMP: 11/21/16 05:49 11/21/16 05:49 Objective : Exam - General General Appearance: No Acute Distress, Cooperative - Head Head Exam: Normal Inspection, Atraumatic - Eye Eye Exam: Normal Appearance - ENT ENT Exam: Normal Exam - Neck Neck Exam: Normal Inspection - Respiratory Respiratory Exam: Clear to Auscultation - Bilaterally - Cardiovascular Cardiovascular Exam: RRR - GI/Abdominal GI/Abdominal Exam: Normal Bowel Sounds, Non Tender, Non Distended, Soft, No Organomegaly - Rectal Rectal Exam: Deferred - External Exam: Deferred - Extremities Extremities Exam: Normal Inspection - Back Back Exam: Normal Inspection - Neurological Neurological Exam: Alert, Oriented x 3, CN II-XII Intact, Moves All Extremities Equally - Psychiatric Psychiatric Exam: Normal Affect - Integumentary Integumentary Exam: Normal Color Assessment and Plan - Patient Problems (1) Dehydration Current Visit: Yes Status: Acute Comment: This is resolved (2) C. difficile diarrhea Current Visit: Yes Status: Acute Comment: Continue same medications. We did talk to her about swing bed and she is agreed the manager case will be here tomorrow and will switch her tomorrow. (3) Hypokalemia Current Visit: Yes Status: Acute Comment: This is resolved (4) Hyponatremia Current Visit: Yes Status: Acute Comment: Stable (5) Hypertension Current Visit: Yes Status: Acute Comment: Same med (6) Elevated d-dimer Current Visit: Yes Status: Acute Comment: Unclear reason investigations were negative probably secondary to inflammation. (7) DVT prophylaxis Current Visit: Yes Status: Acute Comment: She is on Lovenox
[2016-11-22] MEDS: ACIDOPHILUS/BULGARICUS CHEWABLE TABLET PO SCH (09:44)
[2016-11-22] MEDS: LUTEIN 20 MG PO SCH ×2 (09:44→20:15)
[2016-11-22] MEDS: Multivitamin Tab 1 TAB PO SCH (09:44)
[2016-11-22] MEDS: DIFLUPREDNATE RIGHT EYE SCH ×2 (09:44→20:15)
[2016-11-22] MEDS: ENOXAPARIN SODIUM 30 MG/0.3 ML SYRINGE SUBCUT SCH (09:44)
[2016-11-22] MEDS: POTASSIUM CHLORIDE 20 MEQ TAB PO SCH (09:45)
[2016-11-22] MEDS: AmLODIPine Tab 2.5 MG TABLET PO SCH (09:45)
--- NOTE | 2016-11-22 10:34 | OT.PROG ---
Progress Note Progress Note: S: pt was in bed and ready for therapy. pt reports that she was tired today, due to alot of visitors yesterday. O: pt completed bed mobility mod I'ly. pt completed 10 sit to stands with CGA only for safety. pt than completed functional ambulation 75 feet in her room to plug in her phone as well as check for what clothes she had available. pt completed UE red theraband exercises 10 reps in all directions to increase strength. pt completed a toilet transfer with CGA and toileting mod I'ly. pt returend to her bed. A: pt is doing bett er today, tolerating activity longer, although is still requiring several rest breaks throughout the session. P: pt is to transfer to swing bed tomorrow
[2016-11-22] MEDS: Simvastatin Tab 20 MG TAB PO SCH (20:15)
[2016-11-23] MEDS: Vancomycin Oral Soln 125 MG/5 ML (7500MG/300ML) BOTTLE PO SCH ×4 (00:33→17:53)
[2016-11-23 07:03] LABS: CALCIUM 8.6 mg/dL (8.7-10.7); CREATININE 0.5 mg/dL (0.50-1.20); POTASSIUM 4.1 meq/L (3.8-5.2)
[2016-11-23] MEDS: LUTEIN 20 MG PO SCH (09:25)
[2016-11-23] MEDS: Multivitamin Tab 1 TAB PO SCH (09:25)
[2016-11-23] MEDS: DIFLUPREDNATE RIGHT EYE SCH (09:25)
[2016-11-23] MEDS: ENOXAPARIN SODIUM 30 MG/0.3 ML SYRINGE SUBCUT SCH (09:25)
[2016-11-23] MEDS: POTASSIUM CHLORIDE 20 MEQ TAB PO SCH (09:25)
[2016-11-23] MEDS: LOSARTAN 50 MG TABLET PO SCH (09:25)
[2016-11-23] MEDS: AmLODIPine Tab 2.5 MG TABLET PO SCH (09:25)
[2016-11-23] MEDS: ACIDOPHILUS/BULGARICUS CHEWABLE TABLET PO SCH (09:25)
--- NOTE | 2016-11-23 11:50 | PT.PROG ---
Progress Note Progress Note: S. Patient stated that she is feeling pretty good today. O. Patient ambulated 30 feet around her room then performed seated exercises in the form of; heel toe raises, marches, long arc quads, pillow squeezes, clamshells, resisted knee flexion, and sit to stands all x 10 bilaterally. Patient was left in bed with alarm and call light. A. Patient tolerated activity well, she was able to do more exercises with less rest breaks this morning compared to previous treatments. Patient continues to be weak and have balance deficits. She would continue to benefit from skilled therapy at this time. P. Continue POC.
--- NOTE | 2016-11-23 13:21 | OT.PROG ---
Progress Note Progress Note: S:" I feel that I am starting to get better.' O: Pt. seen from 0900 to 1000 with pt. moving from supine to sit in bed with SBA. Pt. completed sit to stand transfer from EOB with use of single point cane and then ambulating from EOB to her bathroom inside her room to complete toileting with supervision. Pt. then completed shower transfer with CGA and use of grab bras/min vc's for safety and body mechanics. Pt. then completed shower activity with CGA to steady pt. while washing, rinsing and drying her feet in a standing position. Pt. then ambulated to a chair close to her bedside with use of her cane and SBA. Pt. then completed Ue dressing with set-up assistance to carlos long-sleeved pullover top and then completed LE dressing with CGA secondary to decreased dynamic standing balance and pt .appeared to become fatigued. Pt. then donned her socks with set-up assitance as well and using leg crossing techniques to complete task. A: Pt. appears to be making gains and it also appears that her endurance is starting to improve as she completed 30+ minutes of sustained shower and ADL activity with minimal rest breaks this morning. P: Continue POC to help pt. increase her occupational performance and overall independence so that she can return home to her prior level of function. Bernice CARRIZALES, OTR/L
--- NOTE | 2016-11-23 15:57 | PT.PROG ---
Progress Note Progress Note: S. Patient stated that she is feeling good this afternoon. O. Patient performed exercises in the form of long arc quads, heel toe raises, marches, sit to stands all x 10. Patient performed balance grid x 3. Patient was left with OT for further care. A. Patient tolerated exercise well, she continues to make gains with strength and endurance. Patient is able to tolerate longer periods of exercise with less frequent rest breaks. Patient would continue to benefit from skilled therapy. P. Continue POC.
[2016-11-23 16:22] VITALS: RESP 18; TEMP 97.6
--- NOTE | 2016-11-23 17:06 | OT.PROG ---
Progress Note Progress Note: S: pt stated that she lives out of town, and that she is . She stated that she doesn't usually use cane to walk. O: pt was seen in her room in the pm. She completed ther ex with RTB in all planes x15 with BUE. exercises completed to increase strength to assist with functional tasks. She completed x2 transfer, one being completing transfer to restroom. toilet transfer and toileting completed Ind. Pt was left in supine position in bed with alarm on and call light within reach. A: pt completes all transfer with cane for safety although balance without it is very good. ADL's are completed with mod Ind. P: continue to progress per plan of care.
--- NOTE | 2016-11-23 18:01 | DCSUMMARY ---
Hospitalization Summary Admit Date: 11/18/16 Discharge Date: 11/23/16 Primary Diagnosis:: C. diff colitis Hospital Course: This is a very pleasant 86-year-old female who was recently diagnosed with C. difficile colitis. She was placed on Flagyl. She had significant nausea and vomiting on this and stopped it. The patient came in weak and still having diarrhea. She was admitted, placed on oral vancomycin, and with time, she has gotten better in her diarrhea is slowing down. She still remains weak and at this time we are discharging her from the hospital to readmit her in to the swing bed. Today, no complaints of chest pain, shortness breath, nausea or vomiting. Assessment and Plan: 1. As per discharge assessments noted 2. Disposition: Patient is discharged to swing bed. 3. Condition on discharge, stable and improved. 4. Diet: regular diet 5. Activities: resume normal activities/continue PT and OT 6. Follow-Up: 1. Hospital service will continue to follow the patient. 2. 7. Medications at the Time of Discharge: Active Medications Generic Name Dose Route Start Last Admin Trade Name Josueq PRN Reason Stop Dose Admin Amlodipine Besylate 2.5 mg 11/21/16 09:00 11/23/16 09:25 Norvasc PO 2.5 mg DAILY MARQUES Administration Enoxaparin Sodium 30 mg 11/20/16 09:00 11/23/16 09:25 Lovenox Inj SUBCUT 30 mg DAILY MARQUES Administration Sodium Chloride 25 mls @ 200 mls/hr 11/18/16 18:09 Normal Saline 0.9% IV .Post Infusion PRN No Primary IV for Flush ONLY Lactobacillus Acidoph/Bulgaricus 1 tab 11/20/16 10:45 11/23/16 09:25 Lactinex PO 1 tab DAILY MARQUES Administration Losartan Potassium 50 mg 11/21/16 09:00 11/23/16 09:25 Cozaar PO 50 mg EVERY AM MARQUES Administration Multivitamins Therapeutic 1 tab 11/19/16 09:00 11/23/16 09:25 Thera Tab PO 1 tab DAILY MARQUES Administration Nf Med: 1 drp 11/18/16 21:00 11/23/16 09:25 Difluprednate [ RIGHT EYE 1 drp Durezol] Eye Drops BID MARQUES Administration Nf Med: Lutein 20 Mg 20 mg 11/18/16 21:00 11/23/16 09:25 Supplement PO 20 mg BID MARQUES Administration Potassium Chloride 20 meq 11/21/16 09:00 11/23/16 09:25 Klor-Con PO 20 meq DAILY MARQUES Administration Simvastatin 20 mg 11/18/16 21:00 11/22/16 20:15 Zocor PO 20 mg BEDTIME MARQUES Administration Sodium Chloride 5 - 20 ml 11/18/16 18:09 Saline Flush IVP BID PRN Flush Vancomycin HCl 125 mg 11/18/16 18:30 11/23/16 17:53 Vancomycin Oral Soln PO 125 mg Q6H MARQUES Administration 8. Time, care, counseling and coordination of care for this discharge is greater than 30 minutes. Exam - Vitals Vital Signs: Vital Signs Temperature 97.6 F Temperature Source Temporal Artery Scan Pulse Rate [Apical] 84 Pulse Rate [Pulse Oximeter 92 Right] Pulse Rate 78 Respiratory Rate 18 Blood Pressure [Right Arm] 136/87 Blood Pressure [Left Arm] 120/81 Blood Pressure 95/58 Pulse Ox 94 Oxygen Flow Rate 1.5 Oxygen Delivery Method Room Air Height 5 ft 1 in Weight 156 lb 9.6 oz - General General Appearance: POSITIVE: No Acute Distress, Cooperative - Eye Eye Exam: POSITIVE: No Scleral Icterus - Respiratory Respiratory Exam: POSITIVE: Clear to Auscultation - Bilaterally, Breathing Non Labored - Cardiovascular Cardiovascular Exam: POSITIVE: RRR, No Murmur, No Clicks, No Gallops, No Rubs, No JVD - GI/Abdominal GI/Abdominal Exam: POSITIVE: Normal Bowel Sounds, Non Tender, Non Distended, Soft - Extremities Extremities Exam: POSITIVE: No Clubbing Present, No Edema Present, No Cyanosis Present - Neurological Neurological Exam: POSITIVE: Alert, Oriented x 3, No Facial Droop, Speech Intact / Clear, Moves All Extremities Equally Data Perinent Studies: Laboratory Results 11/18/16 11/19/16 11/20/16 Range/Units 14:36 06:25 06:00 WBC 6.10 4.75 L (4.8-10.8) 10^3/uL RBC 4.10 L 3.67 L (4.20-5.40) 10^6/uL Hgb 13.3 11.7 L (12.0-16.0) g/dL Hct 38.6 34.8 L (37.0-47.0) % MCV 94.1 94.8 (81-99) FL MCH 32.4 H 31.9 H (27-31) PG MCHC 34.5 33.6 (33-37) g/dL RDW Std Deviation 43.3 44.0 (39-50) fL RDW Coeff of Dena 13.0 13.2 (11.5-14.5) % Plt Count 154 148 (140-350) 10*3/uL MPV 9.4 9.2 (7.4-12.2) FL Immature Gran % (Auto) 0.7 0.2 (0-5) % Neut % (Auto) 69.7 51.3 (50-80) % Lymph % (Auto) 9.8 L 15.8 (10-50) % [place] % (Auto) 9.8 13.1 (5-15) % Eos % (Auto) 9.5 H 19.2 H (0-8) % Baso % (Auto) 0.5 0.4 (0-1) % Immature Gran # (Auto) 0.04 0.01 10*3/UL Neut # (Auto) 4.25 2.44 10*3/UL Lymph # (Auto) 0.60 0.75 10*3/uL [place] # (Auto) 0.60 0.62 (0.3-0.8) 10*3/UL Eos # (Auto) 0.58 0.91 10*3/UL Baso # (Auto) 0.03 0.02 10*3/UL WBC Morphology Comment Normal morphology Normal morphology (NORM) Plt Morphology Comment Normal morphology Normal morphology (NORM) RBC Morph Comment Normal morphology Normal morphology (NORM) D-Dimer 15.81 H (0.00-0.59) mg/L Sodium 127 L 130 L 133.0 L (135-145) meq/L Potassium 3.3 L 3.3 L 3.8 (3.8-5.2) meq/L Chloride 91 L 101 105.0 (98-112) meq/L Carbon Dioxide 28 25 22.0 L (23-33) meq/L Anion Gap 8 4 L 6.0 (5-20) BUN 28 H 21 12.0 (7-22) mg/dL Creatinine 0.8 0.6 0.5 (0.50-1.20) mg/dL Estimated GFR Animal Feeder Animal Feeder Animal Feeder BUN/Creatinine Ratio 35.00 H 35.00 H 24.00 H (6-20) Glucose 93 79 78.0 (78-110) mg/dL Calculated Osmolality 269.0 271.0 274.30 (267-292) mOsm/kg Lactic Acid 0.8 (0.70-2.10) MMOL/L Calcium 8.1 L 7.2 L 7.3 L (8.7-10.7) mg/dL Magnesium 2.1 (1.6-2.4) mg/dL Total Bilirubin 0.8 (0.3-1.2) mg/dL AST 37 (8-39) IU/L ALT 42 (9-52) IU/L Alkaline Phosphatase 40 (38-126) IU/L Troponin I 0.030 (< 0.040) ng/mL C-Reactive Protein 1.6 H (0.0-0.9) mg/dL Total Protein 6.2 (6.1-8.0) g/dL Albumin 3.4 L (3.5-4.8) g/dL Globulin 2.8 (2.50-4.10) g/dL Albumin/Globulin Ratio 1.20 L (1.3-2.0) mg/g 11/21/16 11/23/16 Range/Units 05:49 06:15 WBC 5.21 (4.8-10.8) 10^3/uL RBC 3.95 L (4.20-5.40) 10^6/uL Hgb 12.7 (12.0-16.0) g/dL Hct 37.3 (37.0-47.0) % MCV 94.4 (81-99) FL MCH 32.2 H (27-31) PG MCHC 34.0 (33-37) g/dL RDW Std Deviation 44.2 (39-50) fL RDW Coeff of Dena 13.1 (11.5-14.5) % Plt Count 166 (140-350) 10*3/uL MPV 9.3 (7.4-12.2) FL Immature Gran % (Auto) 0.6 (0-5) % Neut % (Auto) 42.3 L (50-80) % Lymph % (Auto) 31.7 (10-50) % [place] % (Auto) 9.6 (5-15) % Eos % (Auto) 14.6 H (0-8) % Baso % (Auto) 1.2 H (0-1) % Immature Gran # (Auto) 0.03 10*3/UL Neut # (Auto) 2.21 10*3/UL Lymph # (Auto) 1.65 10*3/uL [place] # (Auto) 0.50 (0.3-0.8) 10*3/UL Eos # (Auto) 0.76 10*3/UL Baso # (Auto) 0.06 10*3/UL WBC Morphology Comment See comments (NORM) Plt Morphology Comment Normal morphology (NORM) RBC Morph Comment Normal morphology (NORM) D-Dimer (0.00-0.59) mg/L Sodium 133 L 133 L (135-145) meq/L Potassium 4.1 4.1 (3.8-5.2) meq/L Chloride 103 103 (98-112) meq/L Carbon Dioxide 24 23 (23-33) meq/L Anion Gap 6 7 (5-20) BUN 9 9 (7-22) mg/dL Creatinine 0.5 0.5 (0.50-1.20) mg/dL Estimated GFR BUN/Creatinine Ratio 18.00 18.00 (6-20) Glucose 95 96 (78-110) mg/dL Calculated Osmolality 274.0 274.0 (267-292) mOsm/kg Lactic Acid (0.70-2.10) MMOL/L Calcium 8.0 L 8.6 L (8.7-10.7) mg/dL Magnesium (1.6-2.4) mg/dL Total Bilirubin (0.3-1.2) mg/dL AST (8-39) IU/L ALT (9-52) IU/L Alkaline Phosphatase (38-126) IU/L Troponin I (< 0.040) ng/mL C-Reactive Protein (0.0-0.9) mg/dL Total Protein (6.1-8.0) g/dL Albumin (3.5-4.8) g/dL Globulin (2.50-4.10) g/dL Albumin/Globulin Ratio (1.3-2.0) mg/g Patient Problems - Patient Problem List (1) C. difficile colitis Current Visit: Yes Status: Acute (2) Generalized weakness Current Visit: Yes Status: Acute (3) Hypertension Current Visit: Yes Status: Acute Qualifiers: Hypertension type: essential hypertension Qualified Description: Essential hypertension Qualifier Code(s): (I10) Essential (primary) hypertension (4) Hypokalemia Current Visit: Yes Status: Acute (5) Hyponatremia Current Visit: Yes Status: Acute
== END 2016-11-23 18:13 | disposition swing bed (61) | DRG 372 ==
LOC: ER 14:02 → MED/SURG 16:56
PROVIDERS: ADMIT Internal Medicine; ATTEND Internal Medicine
DX: A04.7 Enterocolitis due to Clostridium difficile (principal); E86.0 Dehydration; E87.1 Hypo-osmolality and hyponatremia; I10 Essential (primary) hypertension; E87.6 Hypokalemia
CPT/HCPCS: 36415; 71010; 71275; 74177; 80048; 80053; 83605; 83735; 84484; 85025; 85379; 86140; 87040; 93005; 93010; 93970; 94761; 96360; 97001; 97110; 97530; 97535; 99285; J1650

== ENCOUNTER → 2016-11-18 | Outpatient (CLI) | payer OTHER, MEDICARE | LOC: MMPC 11:11 | PROVIDERS: ATTEND Nurse Practitioner Family | DX: A04.7 Enterocolitis due to Clostridium difficile (principal); R11.0 Nausea; R50.9 Fever, unspecified; E86.0 Dehydration | CPT/HCPCS: 99214; G0463 ==

== ENCOUNTER 2016-11-23 14:51 | Inpatient (IN) | payer OTHER, MEDICARE ==
[2016-11-23] MEDS ORDERED: Loperamide Tab 2 MG TABLET PO PRN (18:43)
[2016-11-23] MEDS: Simvastatin Tab 20 MG TAB PO SCH (20:23)
[2016-11-23] MEDS: DIFLUPREDNATE RIGHT EYE SCH (20:23)
[2016-11-23] MEDS: Vancomycin Oral Soln 125 MG/5 ML (7500MG/300ML) BOTTLE PO SCH (20:23)
[2016-11-23] MEDS ORDERED: MOXIFLOXACIN HCL LEFT EYE SCH (21:00)
[2016-11-23] MEDS ORDERED: AmLODIPine Tab 2.5 MG TABLET PO SCH (21:00)
[2016-11-24] MEDS: Vancomycin Oral Soln 125 MG/5 ML (7500MG/300ML) BOTTLE PO SCH ×4 (01:13→19:41)
[2016-11-24] MEDS: ENOXAPARIN SODIUM 40 MG/0.4 ML SYRINGE SUBCUT SCH (08:44)
[2016-11-24] MEDS: DIFLUPREDNATE RIGHT EYE SCH ×2 (08:44→20:23)
[2016-11-24] MEDS: LOSARTAN 50 MG TABLET PO SCH (08:45)
[2016-11-24] MEDS: HYDROCHLOROTHIAZIDE 12.5 MG CAPSULE PO SCH (08:45)
[2016-11-24] MEDS: AmLODIPine Tab 2.5 MG TABLET PO SCH (08:45)
[2016-11-24] MEDS ORDERED: ALPHA LIPOIC ACID 300 MG PO SCH (09:00)
[2016-11-24] MEDS ORDERED: UBIDECARENONE 30 MG PO SCH (09:00)
--- NOTE | 2016-11-24 12:47 | PDOC(PROG) ---
Date and Time of Service: 11/24/2016, 1245 Interval History: Diarrhea is improving. Stools are more formed. Patient's very happy that we were able to schedule an eye appointment with Dr. Martinez on the at 10 AM. No nausea or vomiting. Patient is doing very well with therapy. Objective : Exam - General General Appearance: No Acute Distress, Cooperative Additional General Exam Details: Vital Signs - Last Taken Temperature 97.7 F 11/24/16 07:31 Pulse Rate 89 11/24/16 07:31 Respiratory Rate 17 11/24/16 07:31 Blood Pressure 137/84 11/24/16 07:31 Pulse Ox 94 11/24/16 07:31 - Eye Eye Exam: No Scleral Icterus - Respiratory Respiratory Exam: Clear to Auscultation - Bilaterally, Breathing Non Labored - Cardiovascular Cardiovascular Exam: RRR, No Murmur, No Clicks, No Gallops, No Rubs, No JVD - GI/Abdominal GI/Abdominal Exam: Normal Bowel Sounds, Non Tender, Non Distended, Soft - Extremities Extremities Exam: No Clubbing Present, No Edema Present, No Cyanosis Present - Neurological Neurological Exam: Alert, Oriented x 3, No Facial Droop, Speech Intact / Clear, Moves All Extremities Equally Assessment and Plan - Patient Problems (1) C. difficile colitis Current Visit: No Status: Acute (2) Generalized weakness Current Visit: No Status: Acute (3) Hypertension Current Visit: No Status: Acute Qualifiers: Hypertension type: essential hypertension Qualified Description: Essential hypertension - Assessment / Plan Additional Assessment/Plan Details: Continue vancomycin for at least the next 2 weeks and probably the next 3 weeks. We'll send prescription to her pharmacy so that the prescription is ready to go on Wednesday. Anticipate discharge Wednesday with continued PT and OT year. I put him scheduled with Dr. Martinez 08/30/2017 at 10 AM.
--- NOTE | 2016-11-24 12:51 | PTI REPORT ---
Thank you for the referral of Rocio Aly. She was seen on 11/24/16 for a swingbed evaluation secondary to generalized weakness. SUBJECTIVE: The patient is an 86-year-old female. The patient reports she initially came to the ER due to feeling very weak and generally miserable. She states she has been having diarrhea consistently since early September. She states she lives at home by herself and was not using any type of assistive device or on any oxygen; however, approximately two to three days prior to coming to the emergency room she did get her single point cane out due to fear of falling. The patient is on c.diff precautions. PAST MEDICAL HISTORY: Past medical history can be found in the patient's medical record. OBJECTIVE FINDINGS: Pain: The patient denies any pain at this time. Bed mobility: The patient is able to perform bed mobility with stand by assist from supine to edge of bed and edge of bed to supine. Transfers: The patient is able to perform all transfers with contact guard to stand by assist. Ambulation: The patient is able to ambulate with single point cane and contact guard assist x1. Range of motion: Her upper extremity and lower extremity range of motion are within functional limits. Strength: Lower extremity strength at best is 4-/5 as tested in an unsupported seated position at edge of bed. Balance: The patient's standing ambulatory balance at best is fair with the use of an assistive device. ASSESSMENT: The patient is an 86-year-old female on c.diff precautions that presents with weakness and generalized decreased functional mobility. The patient would benefit from skilled therapy in order to improve functional mobility and return to prior level of function. Problem List: Decreased safety Decreased strength Decreased endurance Physical Therapy Goals: To be met by discharge from swingbed: Patient will be able to perform all bed mobility and transfers independently with proper safety awareness with appropriate assistive device. Patient will be able to ambulate up to 100 feet with appropriate assistive device for household ambulation. Patient will tolerate up to 30 minutes of activity in order to return home to be independent with all prior levels of function and return to baseline level of function. TREATMENT PLAN: Patient will be seen B.I.D during the week and one time per day over the weekend as a swingbed patient to address the above goals and objectives. INITIAL TREATMENT: Treatment today consisted of the swingbed evaluation followed by the patient performing therapeutic exercises including seated marches x20 bilaterally, long arc quads x10 bilaterally, and ankle pumps x10 bilaterally. The patient was interested in a HEP and will be issued one this afternoon. The patient was left in room with bed alarm activated and call light within reach. ALAN
--- NOTE | 2016-11-24 14:09 | OTI REPORT ---
Thank you for the referral of Rocio Aly. She was seen on 11/24/16 for a swingbed evaluation secondary to generalized weakness. SUBJECTIVE: The patient is an 86-year-old female who has been in the hospital for approximately one week secondary to having c.diff and weakness. The patient reports that after her discharge she will be going to live with her son and [id number] until she feels better and feels like she is able to complete tasks at her home independently and safely. Prior to admission the patient did live in a home [place] town[place] She states she did complete all ADLs and home care tasks by herself. The patient states she feels "pretty puny " today. She reports that she is lacking strength and motivation today. The patient reports that her bowel movements are becoming more solid and that she had one this morning that looked good. PAST MEDICAL HISTORY: Past medical history can be found in the patient's medical record. OBJECTIVE FINDINGS: Bed mobility: The patient was able to come from supine to sit independently. Range of motion: The patient demonstrates upper extremity range of motion that is within functional limits. Strength: The patient demonstrated shoulder strength of 3+/5, elbow strength of 4/5, and wrist strength of 4/5. Activities of daily living: The patient was able to don and doff socks independently. Transfers: Today we completed a functional toilet transfer with contact guard assist. Balance: The patient is using a cane for balance; she is slightly unsteady using this but overall was able to make it to the bathroom with contact guard assist. Endurance: The patient does fatigue easily and said she was tired after the toilet transfer. ASSESSMENT: Problem List: Decreased activity tolerance Patient needs to be educated on energy conservation techniques Decreased strength Decreased functional mobility Decreased ability to complete ADLs Short-Term Goals: To be met by discharge from swingbed: Patient will learn three energy conservation techniques in order to improve her endurance and activity tolerance. Patient will be able to complete 15 minutes of activity without shortness of breath or fatigue to improve activity tolerance. Patient will improve bilateral upper extremity strength to 4+/5 to improve abilities for functional transfers. Patient will be able to complete shower and toilet transfers independently and safely. Long-Term Goals: To be met following discharge from swingbed: Patient will be discharged home with some assistance from her son and daughter- in-law, independent and safe with all activities of daily living. TREATMENT PLAN: Patient will be seen B.I.D during the week and one time per day over the weekend as a swingbed patient to address the above goals and objectives. INITIAL TREATMENT: Treatment today consisted of the swingbed evaluation followed by upper extremity strengthening activities while sitting edge of bed with red theraband for biceps, internal/external rotation, shoulder extension, shoulder adduction, and triceps x10 repetitions each. She performed a sit to stand transfer with contact guard assist and used her cane to go to the bathroom with contact guard assist. The patient was independent with toilet hygiene. She was able to stand and complete hygiene activities at the sink x4 minutes. She then sat back in chair with TABS placed on her and her call button within reach. The patient stated that she wanted to sit up so that she could try to read. ALAN
--- NOTE | 2016-11-24 16:42 | PT.PROG ---
Progress Note Progress Note: S. Patient stated that she didn't want to leave her room today. O. Patient performed exercises in the form of; sit to stands, heel toe raises, marches, long arc quads, standing hip abduction/adduction (red band), all x 10 bilaterally. Patient was left with OT for further therapy. A. Patient continues to tolerate therapy well, she was a little weak today compared to yesterday, however was able to perform all exercises. Patient would continue to benefit from skilled therapy at this time to increase strength and endurance. P. Continue POC.
--- NOTE | 2016-11-24 16:53 | OT.PROG ---
Progress Note Progress Note: S: pt was cleared to go downstairs, but stated she was not feeling real strong and preferred to stay in room. O: pt was seen in her room in the p.m. She was accompanied by her daughter. She completed all UE exercises in her room with RTB in all ranges x15 with BUE's. She completed one toilet transfer and completed toileting Ind and hygiene at sink Ind. she was left in supine position in bed with alarm on. A: pt may continue to benefit from therapy to increase activity tolerance. Will benefit from going down to gym to work on cardio activity. Once d/c may benefit from out-pt therapy. P: continue per plan of care.
[2016-11-24] MEDS: Simvastatin Tab 20 MG TAB PO SCH (20:22)
[2016-11-25] MEDS: Vancomycin Oral Soln 125 MG/5 ML (7500MG/300ML) BOTTLE PO SCH ×4 (00:35→19:30)
[2016-11-25] MEDS: LOSARTAN 50 MG TABLET PO SCH (08:12)
[2016-11-25] MEDS: DIFLUPREDNATE RIGHT EYE SCH ×2 (08:12→20:07)
[2016-11-25] MEDS: ENOXAPARIN SODIUM 40 MG/0.4 ML SYRINGE SUBCUT SCH (08:12)
[2016-11-25] MEDS: HYDROCHLOROTHIAZIDE 12.5 MG CAPSULE PO SCH (08:13)
[2016-11-25] MEDS: AmLODIPine Tab 2.5 MG TABLET PO SCH (08:13)
--- NOTE | 2016-11-25 15:21 | PT.PROG ---
Progress Note Progress Note: S. Patient stated that she would go to the therapy gym this morning. She reports that she is feeling good. O. Patient ambulated 175 feet to the therapy gym where she used the nu-step x 7 minutes then performed exercises in the form of; balance grid x 3, obstacle course with low hurdles, and foam pad x 4. Patient performed seated exercises in the form of; long arc quads, marches with 2# weight all x 10 bilaterally. Patient ambulated 175 feet back to her room where she was left in her chair with alarm and call light. A. Patient tolerated activity well, She is gaining strength and mobility. She would continue to benefit from skilled therapy to increase balance and endurance. P. Continue POC.
--- NOTE | 2016-11-25 15:27 | PT.PROG ---
Progress Note Progress Note: S. Patient stated that she would like to go to the therapy gym again this afternoon. O. Patient ambulated 175 feet to the therapy gym where she performed exercises in the form of; heel slides, quad sets, ankle pumps, glut sets, short arc quads , hip abduction/adduction, all with 2# weight and x 10 bilaterally. Patient performed obstacle course with small hurdles, medium hurdles, #2 box and foam pad. Patient ambulated 175 feet back to her room where she was left in chair with alarm and call light. A. Patient tolerated activity well this afternoon. Patient continues to make gains with strength and mobility. she was able to ambulate over uneven surfaces well this afternoon. Patient would continue to benefit from skilled therapy to increase balance and endurance. P. Continue POC.
[2016-11-25] MEDS: Simvastatin Tab 20 MG TAB PO SCH (20:07)
[2016-11-26] MEDS: Vancomycin Oral Soln 125 MG/5 ML (7500MG/300ML) BOTTLE PO SCH ×4 (01:16→18:05)
[2016-11-26] MEDS: AmLODIPine Tab 2.5 MG TABLET PO SCH (08:50)
[2016-11-26] MEDS: HYDROCHLOROTHIAZIDE 12.5 MG CAPSULE PO SCH (08:50)
[2016-11-26] MEDS: LOSARTAN 50 MG TABLET PO SCH (08:51)
[2016-11-26] MEDS: ENOXAPARIN SODIUM 40 MG/0.4 ML SYRINGE SUBCUT SCH (08:51)
[2016-11-26] MEDS: DIFLUPREDNATE RIGHT EYE SCH ×2 (08:51→21:04)
--- NOTE | 2016-11-26 10:22 | PDOC(PROG) ---
Interval History: Patient has no complaints doing well Objective : Exam - Respiratory Respiratory Exam: Clear to Auscultation - Bilaterally, Breathing Non Labored, Normal To Percussion - Cardiovascular Cardiovascular Exam: RRR, No Murmur, No Clicks - GI/Abdominal GI/Abdominal Exam: Normal Bowel Sounds, Non Distended, Soft Assessment and Plan - Patient Problems (1) C. difficile colitis Current Visit: No Status: Acute (2) Dehydration Current Visit: No Status: Acute (3) Generalized weakness Current Visit: No Status: Acute (4) Hypertension Current Visit: No Status: Acute Qualifiers: Hypertension type: essential hypertension Qualified Description: Essential hypertension Qualifier Code(s): (I10) Essential (primary) hypertension - Assessment / Plan Additional Assessment/Plan Details: #1 C. difficile colitis continue vancomycin for 3 more weeks spoke to the OT most likely patient can be discharged tomorrow diarrhea has improved All other medical issues are controlled I put him scheduled with Dr. Martinez 08/30/2017 at 10 AM.
--- NOTE | 2016-11-26 11:02 | OT AM DAY ---
Diagnosis : Weakness AM - Occupational Therapy S: The patient states she had family visiting all last night. She stated she did sleep better and she was ready to get out of her room. O: The patient was seen in her room. She completed dressing with modified independence including upper and lower extremities including socks. She needed min assist to don gown and prepping for her trip downstairs to maintain precautions. The patient washed her hands for 20-30 seconds under hot water and new socks were donned. The patient transferred downstairs with contact guard assist; she made it half way and was transferred the rest of the way in her wheelchair, stating she was feeling tired. The patient completed therapeutic exercises with a two pound dumbbell in biceps flexion, shoulder flexion, and shoulder abduction. She then completed shoulder extension with a red theraband. All activities were performed to increase her strength to assist with functional transfers and postural transitions. A: The patient would continue to benefit from therapy to increase her activity tolerance. She completes ADLs very well. P: Continue seeing patient BID during the week and one time per day over the weekend for upper extremity strengthening, ADLs, and overall functional mobility. MTDD
--- NOTE | 2016-11-26 11:08 | OT PM DAY ---
Diagnosis : Weakness PM - Occupational Therapy S: The patient states she is ready for therapy. She thought she might get a nap in. She also stated she would like a shower tomorrow morning. O: The patient had just completed a toilet shower and came out independently. She was prepped for going out of her room to maintain precautions. New socks and a new gown were donned and the patient washed her hands thoroughly. The patient completed transfer downstairs, approximately 175 feet with contact guard assist. She performed upper body ergometer x6 minutes to increase her activity tolerance. She then transferred to mat table where she completed standing dynamic balance activity while playing balloon volleyball using her left and right upper extremities to tap balloon back and forth with contact guard assist to maintain safety. The patient also completed playing catch while standing up, using her right and left leg to step into passing ball back and forth to increase her balance. The patient then sat on blue mat table where she received some water and PT took over session. A: The patient completed balance activity very well. She only needed mod assist to maintain balance while performing therapeutic exercises. P: Continue seeing patient BID during the week and one time per day over the weekend for upper extremity strengthening, ADLs, and overall functional mobility. ALAN
--- NOTE | 2016-11-26 12:00 | PT.PROG ---
Progress Note Progress Note: S. Patient stated that she is feeling good this morning, she would like to go to the therapy gym. O. Patient ambulated 175 feet to the therapy gym where she used the nu-step x 6 minutes then performed balance grid x 5, and obstacle course with small hurdles , medium hurdles, foam pad and #3 box x 3 laps. Patient used the arm bike x 6 minutes then ambulated 175 feet back to her room where she was left in chair with alarm and call light. A. Patient tolerated therapy well this morning, she was able to ambulate on uneven surfaces with CGA, she continues to use her single point cane when she is fatigued. P. Continue POC.
--- NOTE | 2016-11-26 16:27 | OT.PROG ---
Progress Note Progress Note: S: pt stated she is hoping to go home soon although not sure when. She thinks it would be good for her to participate in therapy after d/c. O: pt was seen in therapy in p.m. and completed UE exercises with 2# dumbell, bicep flex,shoulder press, abd. RTB exercises completed in shoulder ext and hor abd, all completed with BUE x15. pt fatigued towards end of exercises and requested to return to room. She completed transfer back to her room with CGA, washed her hands and chose to set on EOB. Nursing was notified of her return. A: pt would continue to benefit from therapy to increase activity tolerance and balance to improve safety during transfers. P: Continue per plan of care.
--- NOTE | 2016-11-26 16:29 | PT.PROG ---
Progress Note Progress Note: S. Patient stated that she would like to go to the therapy gym. O. Patient ambulated 175 feet to the therapy gym where she used the nu-step x5 minutes and standing balance x 3 minutes, then performed exercises in the form of; long arc quads, heel toe raises, marches, ball squeezes, clamshells, resisted knee flexion all x 10 bilaterally. Patient was left with OT for further therapy. A. Patient tolerated activity well, she was able to perform balance activities with SBG assist. She continues to struggle with fatigue and requires short seated rest breaks to recover. Patient would continue to benefit from skilled therapy to increase strength and endurance. P. Continue POC.
[2016-11-26 19:46] VITALS: RESP 20
[2016-11-26] MEDS: Simvastatin Tab 20 MG TAB PO SCH (21:04)
[2016-11-27] MEDS: Vancomycin Oral Soln 125 MG/5 ML (7500MG/300ML) BOTTLE PO SCH ×2 (00:47→06:43)
[2016-11-27 06:02] LABS: BASOPHILS # (AUTO) 0.04 10*3/UL; BASOPHILS % (AUTO) 0.7 % (0-1); EOSINOPHILS % (AUTO) 6.7 % (0-8); HEMATOCRIT 37.9 % (37.0-47.0); IMM GRAN % (AUTO) 0.7 % (0-5); IMM GRAN# (AUTO) 0.04 10*3/UL; LYMPHOCYTES # (AUTO) 1.05 10*3/uL; LYMPHOCYTES % (AUTO) 18.6 % (10-50); MEAN CORPUSCULAR HEMOGLOBIN 32.7 PG (27-31); MEAN CORPUSCULAR HGB CONC 34.3 g/dL (33-37); MEAN PLATELET VOLUME 8.8 FL (7.4-12.2); MONOCYTES # (AUTO) 0.78 10*3/UL (0.3-0.8); MONOCYTES % (AUTO) 13.8 % (5-15); NEUTROPHILS # (AUTO) 3.37 10*3/UL; NEUTROPHILS % (AUTO) 59.5 % (50-80); RDW COEFFICIENT OF VARIATION 13.7 % (11.5-14.5); RED BLOOD COUNT 3.98 10^6/uL (4.20-5.40); WHITE BLOOD COUNT 5.66 10^3/uL (4.8-10.8)
[2016-11-27 06:05] LABS: PLATELET MORPHOLOGY COMMENT NORMAL MORPHOLOGY (NORM)
[2016-11-27 06:16] LABS: CALCIUM 9.1 mg/dL (8.7-10.7); CREATININE 0.8 mg/dL (0.50-1.20); POTASSIUM 3.7 meq/L (3.8-5.2); TOTAL PROTEIN 6.3 g/dL (6.1-8.0)
[2016-11-27 06:52] VITALS: TEMP 97
[2016-11-27] MEDS: ENOXAPARIN SODIUM 40 MG/0.4 ML SYRINGE SUBCUT SCH (08:44)
[2016-11-27] MEDS: HYDROCHLOROTHIAZIDE 12.5 MG CAPSULE PO SCH (08:44)
[2016-11-27] MEDS: AmLODIPine Tab 2.5 MG TABLET PO SCH (08:44)
[2016-11-27] MEDS: LOSARTAN 50 MG TABLET PO SCH (08:44)
[2016-11-27] MEDS: DIFLUPREDNATE RIGHT EYE SCH (08:45)
--- NOTE | 2016-11-27 10:12 | DCSUMMARY ---
Hospitalization Summary Hospital Course: Final Discharge Diagnosis: Generalized weakness C. difficile colitis Diagnostic Data, Laboratory Data, and Procedures of Signifigance: Laboratory Results 11/27/16 Range/Units 05:45 WBC 5.66 (4.8-10.8) 10^3/uL RBC 3.98 L (4.20-5.40) 10^6/uL Hgb 13.0 (12.0-16.0) g/dL Hct 37.9 (37.0-47.0) % MCV 95.2 (81-99) FL MCH 32.7 H (27-31) PG MCHC 34.3 (33-37) g/dL RDW Std Deviation 45.2 (39-50) fL RDW Coeff of Dena 13.7 (11.5-14.5) % Plt Count 231 (140-350) 10*3/uL MPV 8.8 (7.4-12.2) FL Immature Gran % (Auto) 0.7 (0-5) % Neut % (Auto) 59.5 (50-80) % Lymph % (Auto) 18.6 (10-50) % [place] % (Auto) 13.8 (5-15) % Eos % (Auto) 6.7 (0-8) % Baso % (Auto) 0.7 (0-1) % Immature Gran # (Auto) 0.04 10*3/UL Neut # (Auto) 3.37 10*3/UL Lymph # (Auto) 1.05 10*3/uL [place] # (Auto) 0.78 (0.3-0.8) 10*3/UL Eos # (Auto) 0.38 10*3/UL Baso # (Auto) 0.04 10*3/UL WBC Morphology Comment Normal morphology (NORM) Plt Morphology Comment Normal morphology (NORM) RBC Morph Comment Normal morphology (NORM) Sodium 136 (135-145) meq/L Potassium 3.7 L (3.8-5.2) meq/L Chloride 105 (98-112) meq/L Carbon Dioxide 24 (23-33) meq/L Anion Gap 7 (5-20) BUN 16 (7-22) mg/dL Creatinine 0.8 (0.50-1.20) mg/dL Estimated GFR (>60 ml/min/1.73m(2)) BUN/Creatinine Ratio 20.00 (6-20) Glucose 93 (78-110) mg/dL Calculated Osmolality 282.0 (267-292) mOsm/kg Calcium 9.1 (8.7-10.7) mg/dL Total Bilirubin 1.0 (0.3-1.2) mg/dL AST 39 (8-39) IU/L ALT 58 H (9-52) IU/L Alkaline Phosphatase 36 L (38-126) IU/L Total Protein 6.3 (6.1-8.0) g/dL Albumin 3.2 L (3.5-4.8) g/dL Globulin 3.1 (2.50-4.10) g/dL Albumin/Globulin Ratio 1.00 L (1.3-2.0) mg/g History and Physical pertinent to Admission: Course of Hos This very nice 86-year-old female who was recently diagnosed with C. difficile colitis she was placed initially on Flagyl and had significant nausea and vomiting and this was stopped patient was admitted because she was still having diarrhea and improved throughout her hospital stay with slowing down her diarrhea today she has 1-2 stools a day which are solid but before her discharge she remained pretty weak and PT and OT recommended swing bed and now has progressed to basically her baseline with the good strength. I discussed the case with physical therapy they recommended the patient could transition back home but still to continue outpatient physical therapy spoke to the patient about this and she agrees and is very happy to be going home she will be continuing her vancomycin for 2 more weeks and follow-up with her primary care physician at that time On the date of discharge, the patient was examined: Gen.: No acute distress, alert, nontoxic Heart: Regular rate and rhythm, no murmurs, clicks, gallops, or rubs Lungs: Clear to auscultation bilaterally, breathing is nonlabored Abdomen/GI: Normal tones on auscultation, soft, nontender, nondistended Musculoskeletal/extremities: No clubbing, cyanosis, or edema Vitals reviewed and are listed below Vital Signs (24 hrs) Temp Pulse Pulse Resp BP Pulse Ox 11/27/16 06:50 97 F 84 20 125/98 96 11/27/16 06:45 80 11/27/16 02:28 94 11/26/16 19:00 97.3 F 89 20 111/68 95 Assessment and Plan: 1. As per discharge assessments above 2. Disposition: 3. Condition on discharge, stable and improved. 4. Diet: regular diet 5. Activities: resume normal activities 6. Follow-Up: 1. PCP 2. 7. Medications at the Time of Discharge: Home Medications Medication Instructions Recorded Confirmed Type Alpha Lipoic Acid 300 mg PO DAILY cap 12/27/12 11/23/16 History Ascorbic Acid [Vitamin C] 1,000 mg PO TID tab 12/27/12 11/23/16 History Calcium/Magnesium [Calcium 1 each PO BID tab 12/27/12 11/23/16 History Magnesium Tablet] Flaxseed 340 gm PO DAILY scoop 12/27/12 11/23/16 History Multivitamin [Daily Vitamin] 1 tab ORAL QD tab 12/27/12 11/23/16 History Ubidecarenone [Coq-10] 30 mg PO DAILY cap 12/27/12 11/23/16 History Cholecalciferol (Vitamin D3) 2,000 unit PO BID #0 cap 04/03/16 11/23/16 Clinic [Vitamin D3] Lutein 20 mg PO BID #0 cap 04/03/16 11/23/16 Clinic Bilberry Fruit Extract [Bilberry] 80 mg PO DAILY cap 05/21/16 11/23/16 History Amlodipine Besylate 1 tab PO QHS #90 tab 10/05/16 11/23/16 Clinic Losartan/Hydrochlorothiazide 1 tab PO DAILY #90 tab 10/05/16 11/23/16 Clinic [Losartan-Hctz 100-12.5 mg Tab] Difluprednate [Durezol] 1 drp RIGHT EYE BID 11/18/16 11/23/16 History Loperamide [Imodium] 2 mg PO TID PRN 11/18/16 11/23/16 History Moxifloxacin HCl [Vigamox] 1 drp LEFT EYE BID 11/18/16 11/23/16 History Simvastatin 20 mg PO BEDTIME 11/18/16 11/23/16 History Vancomycin Oral Soln 125 mg PO Q6H bottle 11/23/16 11/23/16 Rx Vancomycin Oral Soln 125 mg PO Q6H #49 bottle 11/25/16 Rx 8. Time, care, counseling and coordination of care for this discharge is greater than 30 minutes. Exam - Vitals Vital Signs: Vital Signs Temperature 97 F Temperature Source Temporal Artery Scan Pulse Rate [Apical] 80 Pulse Rate [Pulse Oximeter] 84 Respiratory Rate 20 Blood Pressure [Right Arm] 125/98 Pulse Ox 96 Oxygen Delivery Method Room Air Height 5 ft 1 in Weight 69.173 kg Patient Problems - Patient Problem List (1) C. difficile colitis Current Visit: No Status: Acute (2) Dehydration Current Visit: No Status: Acute (3) Generalized weakness Current Visit: No Status: Acute (4) Hypertension Current Visit: No Status: Acute Qualifiers: Hypertension type: essential hypertension Qualified Description: Essential hypertension Qualifier Code(s): (I10) Essential (primary) hypertension
--- NOTE | 2016-11-27 11:10 | PT.PROG ---
Progress Note Progress Note: S. Patient stated that she is ready to go home, she doesn't want to leave her room this morning. O. Patient performed seated exercises in the form of; long arc quads, heel toe raises, marches, resisted knee flexion, clamshells, pillow squeezes, standing hip abduction/adduction all x 10 bilaterally. A. Patient tolerated exercises well today, she is anxious to go home. Patient continues to have balance deficits, she would continue to benefit from outpatient therapy. P. Continue POC.
--- NOTE | 2016-11-27 12:34 | OT AM DAY ---
Diagnosis : Weakness AM - Occupational Therapy S: The patient reports she would really like to shower. O: Today the patient was able to mobilize throughout her room and grab items that she needs to complete ADLs. The patient demonstrated good balance today. She had to reach for some items off of the floor and items in a cupboard. She was able to carry items to the shower without loss of balance. In the shower she was able to stand using a grab bar and made 360 degree turns in the shower and washed self independently minus her back. She was able to dry self independently with the exception of her back. She dressed her upper and lower extremities independently and was able to walk back to her room and complete standing activities at the sink x5 minutes to complete hygiene. A: The patient did well with her balance. She demonstrated independence and safety while taking a shower. Overall she is doing well and more than likely will be discharged home tomorrow. P: Continue seeing patient BID during the week and one time per day over the weekend for upper extremity strengthening, ADLs, and overall functional mobility. ALAN
--- NOTE | 2016-11-30 10:21 | OT AM DAY ---
Diagnosis : Weakness AM - Occupational Therapy S: The patient states she wants to go home today. She is waiting to hear from her son and is also waiting to talk to the doctor before leaving. O: The patient was seen in her room. She was in her chair and she had already dressed. She completed functional transfer to the restroom and completed all toileting independently and completed all hygiene at the sink independently. The patient then completed therapeutic exercises with red theraband for shoulder extension, shoulder flexion, biceps flexion, rows, and internal rotation, all bilaterally x15 to increase her strength. The patient was left in chair with chair alarm on and call light within reach. A: The patient may continue to benefit from therapy in an outpatient setting following discharge from the hospital. P: Patient will be discharged to home. MTDD
== END 2016-11-27 11:30 | disposition home or self-care (01) | DRG 372 ==
LOC: MED/SURG 18:42
PROVIDERS: ADMIT Family Medicine; ATTEND Family Medicine
DX: A04.7 Enterocolitis due to Clostridium difficile (principal); E87.1 Hypo-osmolality and hyponatremia; R53.1 Weakness; E86.0 Dehydration; I10 Essential (primary) hypertension; E87.6 Hypokalemia
CPT/HCPCS: 36415; 80053; 85025; 94761; 97110; 97530; 97535; J1650

== ENCOUNTER → 2017-05-26 | Outpatient (CLI) | payer OTHER, MEDICARE ==
[2017-05-26 10:40] LABS: BUN/CREATININE RATIO 21.42 (6-20); CALCIUM 9.1 mg/dL (8.7-10.7); SERUM ALBUMIN 4.1 g/dL (3.5-4.8)
== END ==
LOC: LAB 10:17
PROVIDERS: ATTEND Nurse Practitioner Family
DX: I10 Essential (primary) hypertension (principal)
CPT/HCPCS: 36415; 80053

== ENCOUNTER → 2017-06-04 | Outpatient (CLI) | payer OTHER, MEDICARE | LOC: MMPC 09:00 | PROVIDERS: ATTEND Nurse Practitioner Family | DX: I10 Essential (primary) hypertension (principal) | CPT/HCPCS: 99213; G0463 ==

== ENCOUNTER 2019-01-10 06:11 | Inpatient (IN) ==
[~2019-01-10 06:11] MED LIST: BUPivacaine Liposome/PF (Exparel) Inj 20ml vial INFIL ONE; Clindamycin 900mg (Premix) 900 MG/50 ML BAG IV ONE; Ketorolac Inj 30 MG, Morphine Inj (Ortho Cocktail) 5 MG, BUPivacaine Inj 0.25% PF 150 MG SPLASH ONE; LIDOCAINE W/ SODIUM BICARB 0.5 ML SYR ONE; LIDOCAINE W/ SODIUM BICARB 0.5 ML SYR SUBD ONE; Lactated Ringers 1,000 ML PRIMARY IV ONE; Lactated Ringers 1,000 ML PRIMARY IV SCH; Nasal Sanitizer POPSWAB ampule 3 AMP (Nozin) PREOP DOSE ENOS SCH; Tranexamic Acid 1,000 MG in Sodium Chloride 0.9% 100 ML IV SCH
[2019-01-10] MEDS ORDERED: LIDOCAINE MPF 2% - 5 ML (20 MG/1 ML) ONE (06:34)
[2019-01-10] MEDS ORDERED: PROPOFOL 10 MG/1 ML (200 MG/20 ML) VIAL IV ONE (06:34)
[2019-01-10] MEDS ORDERED: TRANEXAMIC ACID 1,000 MG / 10 ML VIAL ONE ×3 (06:34→10:24)
[2019-01-10] MEDS ORDERED: fentaNYL Inj 250 MCG/5 ML VIAL ONE (06:35)
[2019-01-10] MEDS ORDERED: FAMOTIDINE 20 MG/2 ML VIAL IVP ONE (06:35)
[2019-01-10] MEDS ORDERED: ROCURONIUM 10 MG/1 ML - 5 ML VIAL IVP ONE (06:35)
[2019-01-10 06:37] LABS: BILIRUBIN,URINE NEGATIVE (NEG); CLARITY,URINE CLEAR (CLEAR); COLOR,URINE YELLOW (Y); GLUCOSE, URINE (UA) NEGATIVE (NEG); OCCULT BLOOD,URINE NEGATIVE (NEG); PROTEIN,URINE NEGATIVE (NEG); UROBILINOGEN,URINE 0.2 EU/dL (0.2)
[2019-01-10] MEDS ORDERED: Acetaminophen 1000mg Inj 1,000 MG/100 ML VIAL IV ONE (06:39)
[2019-01-10 06:43] LABS: RBC,URINE 0 /hpf; SQUAMOUS EPITHELIAL CELL,UR RARE; URINE SAMPLE TYPE CLEAN CATCH URINE
[2019-01-10] MEDS ORDERED: Sodium Chloride 0.9% 500 ML ONE (07:11)
[2019-01-10] MEDS ORDERED: Sodium Chloride 0.9% 2,000 ML PRIMARY IV ONE (07:12)
[2019-01-10] MEDS ORDERED: EPINEPHrine Inj (1:1,000) 1 mg/ml amp ONE (07:15)
[2019-01-10] MEDS ORDERED: MORPHINE SULFATE/PF 10 MG/10 ML AMPULE ONE (07:16)
[2019-01-10] MEDS ORDERED: Sodium Chloride 0.9% vial 40 ML ONE (07:20)
[2019-01-10] MEDS ORDERED: Gentamicin Inj 40 MG/ML VIAL ONE (07:20)
[2019-01-10] MEDS ORDERED: BUPivacaine Liposome/PF (Exparel) Inj 20ml vial INFIL ONE (07:20)
[2019-01-10] MEDS ORDERED: HEPARIN 10,000 UNIT/1 ML ONE (07:20)
[2019-01-10] MEDS ORDERED: ePHEDrine Inj 50 MG/ML AMP ONE ×2 (07:47→09:12)
[2019-01-10] MEDS ORDERED: Lactated Ringers 1,000 ML PRIMARY IV ONE ×3 (09:05→14:10)
[2019-01-10] MEDS ORDERED: Sodium Chloride 0.9% vial 10 ML ONE (09:12)
[2019-01-10] MEDS ORDERED: PHENYLEPHRINE 10,000 MCG/1 ML VIAL ONE ×2 (09:12→09:25)
[2019-01-10] MEDS ORDERED: Sodium Chloride 0.9% 250 ML ONE ×4 (09:25→11:53)
[2019-01-10] MEDS ORDERED: MIDAZOLAM HCL 2 MG/2 ML VIAL ONE (09:36)
[2019-01-10] MEDS ORDERED: Sodium Chloride 0.9% 1,000 ML PRIMARY IV ONE (09:43)
[2019-01-10 11:11] LABS: Hematocrit [HCT] 33.9 % (37.0-47.0); Hemoglobin [HGB] 11.1 g/dL (12.0-16.0)
[2019-01-10] MEDS ORDERED: DEXAMETHASONE PF 10 MG/1 ML VIAL ONE (11:14)
[2019-01-10] MEDS ORDERED: CITRIC ACID/SODIUM CITRATE 30 ML CUP PO ONE (11:15)
[2019-01-10] MEDS ORDERED: ONDANSETRON 4 MG/2 ML VIAL ONE (11:17)
[2019-01-10] MEDS ORDERED: diphenhydrAMINE 50 MG/1 ML VIAL ONE (11:23)
--- NOTE | 2019-01-10 11:45 | CRNA.PROCE ---
Central Neuraxis Block Placeaz - - Safety Measures: Time Out Taken, Site Verified - - Type of Block: Subarachnoid Reason for Block: Surgical Moniters Used During Block: EKG, SPO2, NIBP Sedation Used - Enter Amount Used in Comment Field: Midazolam (mg): Yes (3), Fentanyl (mcg): Yes (50) Positioning: Sitting Skin Prep Used: ChloroPrep Draped: Yes Skin Infiltration - Enter Amount Used in Comment Field: 1% Xylocaine with Bicarb (mL): Yes (.5cc), 1% Xylocaine (mL): Yes (.5) Spinal Needle Used: 22 Rayn 80 mm Additive Used - Enter Amount Used in Comment Field: Preservative Free Morphine (mg): Yes (.1), Epinephrine 1:1000 Needle Rinse (mL): Yes (wash) Bioclusive Dressing Applied: No Anesthesia Time - Other Weight: 72.303 kg Height: 5 ft 2 in Body Mass Index (BMI): 29.1
--- NOTE | 2019-01-10 11:47 | CRNA.PROGR ---
Anesthesia Time - Procedure/Recovery Time Start Date: 01/10/19 Anesthesia : Time In: 07:56 Anesthesia : Time Out: 11:12 - Block Time PreOp Block : Time In: 07:20 PreOp Block : Time Out: 07:35 - Other Weight: 72.303 kg Height: 5 ft 2 in Body Mass Index (BMI): 29.1 Physical Status: P3 Anesthesia Type: Spinal Block, MAC
--- NOTE | 2019-01-10 11:52 | DI ---
XR HIP COMPLETE MIN 2VW U/L 01/10/2019 11:10 AM History: [facility] [place] ^right hip replacement for Osteoarthritis Comparison: 12/14/2018. Findings/Impression: Portable AP view of the pelvis and AP/crosstable lateral views of the right hip are submitted. The patient is status post total hip arthroplasty; correlate with desired surgical out come. There is no evidence of hardware fracture or loosening. No acute fracture or dislocation is not ed. A drain tip projects at the level of the right greater trochanter. There are surgical juan pablo gloria ng the right lateral hip soft tissues. A Zavala catheter tip projects over the pelvis. There is gas in the soft tissues of the right hip, an expected finding in the immediate postoperative timeframe. The remainder of the exam is unchanged.
[2019-01-10] MEDS ORDERED: PANTOPRAZOLE 40 MG TABLET PO SCH ×2 (12:49→13:15)
[2019-01-10] MEDS ORDERED: diphenhydrAMINE 25 MG CAPSULE PO PRN (12:49)
[2019-01-10] MEDS ORDERED: Prochlorperazine Tab 10 MG TAB PO PRN (12:49)
[2019-01-10] MEDS ORDERED: IBUPROFEN 400 MG TABLET PO PRN (12:49)
[2019-01-10] MEDS ORDERED: HYDROmorphone 2 MG/1 ML IVP PRN (12:49)
[2019-01-10] MEDS ORDERED: HYDROcodone-APAP 7.5 MG-325 MG TABLET PO PRN (12:49)
[2019-01-10] MEDS ORDERED: BISACODYL 5 MG TABLET PO PRN (12:49)
[2019-01-10] MEDS ORDERED: BISACODYL 10 MG SUPPOSITORY RECTAL PRN (12:49)
[2019-01-10] MEDS ORDERED: MAG HYDROX/AL HYDROX/SIMETH 30 ML SUSP PO PRN (12:49)
[2019-01-10] MEDS ORDERED: ONDANSETRON 4 MG/2 ML VIAL IVP PRN (12:49)
[2019-01-10] MEDS ORDERED: CALCIUM CARBONATE 500 MG (TUMS) CHEWABLE TABLET PO PRN (12:49)
[2019-01-10] MEDS ORDERED: Ondansetron ODT Tab 8 MG TAB PO PRN (12:49)
--- NOTE | 2019-01-10 13:02 | ORTHO.OP ---
- - -: See Dictated Operative Report Procedure Codes - Hip Procedures Primary Hip Procedure: 94107 : NA (wilbur MIRANDA assisted)
[2019-01-10 14:02] LABS: Hematocrit [HCT] 39.1 % (37.0-47.0); MEAN CORPUSCULAR HEMOGLOBIN 31.6 PG (27-31); MEAN CORPUSCULAR HGB CONC 33.2 g/dL (33-37); MEAN CORPUSCULAR VOLUME 94.9 FL (81-99); RED BLOOD COUNT 4.12 10^6/uL (4.20-5.40)
[2019-01-10] MEDS: Potassium Chloride Tab 10 MEQ TAB PO SCH (14:07)
[2019-01-10] MEDS: Clindamycin 900mg (Premix) 900 MG/50 ML BAG IV SCH ×2 (14:07→19:37)
[2019-01-10] MEDS: Lactated Ringers 1,000 ML PRIMARY IV SCH (14:07)
--- NOTE | 2019-01-10 14:23 | PDOC ---
HPI - History of Present Illness Date of Service: 01/10/19 Time of Service: 14:18 Chief Complaint: Right hip pain History of Present Illness: This very pleasant 88-year-old female who has had long-standing right hip osteoarthritis that has failed conservative measures such as anti- inflammatories, pain medications and so forth. She opted for a right hip replacement which was done by Dr. Hays today. Please see his notes regarding the procedure. I'm seeing the patient postoperatively. Dr. Hays and I spoke about the patient. He stated that the patient lost anywhere from 500-1000 mL's. She was given a unit of blood postoperatively, but she had no symptoms of severe anemia. Currently, she denies any chest pain, dizziness, l ightheadedness, shortness breath, nausea or vomiting postoperatively. She states to me that her pain is well controlled. She did get an epidural. She was given crystalloid and extend in the operating suite. She is starting LR on the floor. Her systolic pressures have been consistently in the mid to high 80s. Her speech is intact and clear and she has no other symptoms. I reviewed her medications and stopped her KEM inhibitor, Norvasc, and anti-inflammatories to avoid any kidney injury or worsened insults with hypotension. Past Medical History Medical History: 1. Hypertension. 2. Osteoporosis. 3. Hyperlipidemia. 4. Macular degeneration. 5. Heart murmur. 6. Osteoarthritis, specifically right hip, status post total hip arthroplasty today. 7. History of compression fracture in her back. 8. History of C. difficile colitis Surgical History: 1. Cataract surgery, bilateral. 2. History of wrist fracture, bilateral. Status post pinning. 3. Esophagogastroduodenoscopy with biopsy and dilation. Patient had a food bolus in 2018. 4. Right hip arthroplasty today Family History: Reviewed an Not Pertinent Pertinent Family History: No history of diabetes or heart disease in the family per the patient's history. Past Social History: She lives by herself, doesn't smoke doesn't drink. She is independent with her activities. [place] She had 4 children described as healthy. She states just that she is full code. Tobacco Use: Never Smoker In the Past 12 Months, Have Used or Abuse Any of the Following Substance: None Alcohol Use: None Medication / Allergies Home Medications: Home Medications 3 Medication Instructions Recorded Confirmed Type Alpha Lipoic Acid 300 mg PO DAILY cap 12/27/12 01/09/19 History Ascorbic Acid [Vitamin C] 1,000 mg PO TID tab 12/27/12 01/09/19 History Flaxseed 340 gm PO DAILY sc 12/27/12 01/09/19 History Multivitamin [Daily Vitamin] 1 tab ORAL QD tab 12/27/12 01/09/19 History Ubidecarenone [Coq-10] 30 mg PO DAILY cap 12/27/12 01/09/19 History Cholecalciferol (Vitamin D3) 2,000 unit PO BID #0 cap 04/03/16 01/09/19 History [Vitamin D3] Lutein 20 mg PO BID #0 cap 04/03/16 01/09/19 History Bilberry Fruit Extract [Bilberry] 80 mg PO DAILY cap 05/21/16 01/09/19 History Magnesium 250 mg PO DAILY tab 06/04/17 01/09/19 History Potassium 1 tab PO QD tab 06/04/17 01/09/19 History losartan 25 mg tablet 25 mg PO QDAY #90 tab 11/28/18 01/10/19 Rx pantoprazole 40 mg tablet,delayed 20 mg PO .QOD tab 11/28/18 01/09/19 History release Amlodipine Besylate 2.5 mg PO DAILY 01/09/19 01/10/19 History Allergies/Adverse Reactions: Allergies Allergy/AdvReac Type Severity Reaction Status Date / Time latex Allergy Intermediate Itching Verified 01/10/19 13:06 Penicillins Allergy Intermediate RASH Verified 01/10/19 13:06 seasonal allergies Allergy Mild ITCHING Uncoded 01/10/19 13:06 Review of Systems - Constitutional Constitutional: REPORTS: Negative System Review - Respiratory Respiratory: REPORTS: Negative System Review - Cardiovascular Cardiovascular: REPORTS: Negative System Review - Gastrointestinal Gastrointestinal / Abdominal: REPORTS: Negative System Review - Musculoskeletal Musculoskeletal: REPORTS: Joint Pain - Hips, Joint Pain - Knees - Neurological Neurologic: REPORTS: Negative System Review Exam - Vitals Vital Signs: Vital Signs Temperature 96.2 F Temperature Source Temporal Artery Scan Pulse Rate [Pulse Oximeter] 69 Pulse Rate [Apical] 61 Pulse Rate 61 Respiratory Rate 12 Blood Pressure [Right Arm] 87/54 Blood Pressure 84/48 Pulse Ox 96 Oxygen Flow Rate 3 Oxygen Delivery Method Nasal Cannula Height 5 ft 2 in Weight 159 lb 6.4 oz - Head Head Exam: Normal Inspection, Normocephalic, Atraumatic - Eye Eye Exam: POSITIVE: No Scleral Icterus - ENT ENT Exam: POSITIVE: Mucous Membranes Moist - Neck Neck Exam: JVP is not Raised - Respiratory Respiratory Exam: POSITIVE: Clear to Auscultation - Bilaterally, Breathing Non Labored - Cardiovascular Cardiovascular Exam: POSITIVE: RRR, No Clicks, No Gallops, No Rubs, Systolic Murmur (Left upper sternal border), No JVD - GI/Abdominal GI/Abdominal Exam: POSITIVE: Normal Bowel Sounds, Non Tender, Non Distended, Soft - Rectal Rectal Exam: POSITIVE: Deferred - External Exam: POSITIVE: Deferred Exam: POSITIVE: Deferred - Extremities Extremities Exam: POSITIVE: No Clubbing Present, No Edema Present, No Cyanosis Present Additional Extremities Exam Details: Right hip has a dressing in place which is clean, dry, intact - Neurological Neurological Exam: POSITIVE: Alert, Oriented x 3, No Facial Droop, Speech Intact / Clear - Psychiatric Psychiatric Exam: POSITIVE: Normal Affect Results - Labs CBC and BMP: 01/10/19 13:58 Additional Lab Results: 01/10/19 11:00 Hgb 11.1 L Hct 33.9 L Urinalysis is negative, preoperative MRSA screen negative Assessment and Plan - Patient Problems (1) Postoperative hypotension Current Visit: Yes Status: Acute Code(s): I95.89 - Other hypotension (2) Arthritis of right hip Current Visit: Yes Status: Acute Code(s): M16.11 - Unilateral primary osteoarthritis, right hip (3) Chronic gastroesophageal reflux disease Current Visit: Yes Status: Chronic Code(s): K21.9 - Gastro-esophageal reflux disease without esophagitis (4) Status post right hip replacement Current Visit: Yes Status: Acute Code(s): Z96.641 - Presence of right artificial hip joint (5) Hypertension Current Visit: Yes Status: Chronic Code(s): I10 - Essential (primary) hypertension Qualifiers: Hypertension type: essential hypertension Qualified Code(s): I10 - Essential (primary) hypertension - Assessment / Plan Additional Assessment/Plan Details: At this point, hold off on the KEM inhibitor and Norvasc. Continue lactated Ringer's, we'll bolus 1 L. If no significant improvement in the blood pressure, may consider ephedrine. CBC later this evening as current CBC is negative which I ordered here. CBC in a.m. Transfuse if indicated. DVT prophylaxis as per orthopedics. PT and OT when able. Avoid Lovenox or other such medications until the epidural is out. Patient is full code. Continue home medications otherwise.
[2019-01-10 17:11] LABS: Hematocrit [HCT] 38.9 % (37.0-47.0)
[2019-01-10 17:17] LABS: CHOL/HDL RATIO 2.83 RATIO (0-4.0)
[2019-01-10 20:07] LABS: Hematocrit [HCT] 39.5 % (37.0-47.0); Hemoglobin [HGB] 13.2 g/dL (12.0-16.0); MEAN CORPUSCULAR HEMOGLOBIN 31.9 PG (27-31); MEAN CORPUSCULAR HGB CONC 33.4 g/dL (33-37); MEAN CORPUSCULAR VOLUME 95.4 FL (81-99); MEAN PLATELET VOLUME 9.9 FL (7.4-12.2); RED BLOOD COUNT 4.14 10^6/uL (4.20-5.40)
[2019-01-10] MEDS: DOCUSATE 100 MG CAPSULE PO SCH ×2 (20:49→23:22)
[2019-01-11] MEDS: Lactated Ringers 1,000 ML PRIMARY IV SCH ×2 (02:06→17:44)
[2019-01-11] MEDS: Clindamycin 900mg (Premix) 900 MG/50 ML BAG IV SCH (02:06)
[2019-01-11 05:14] LABS: Hematocrit [HCT] 33.5 % (37.0-47.0); Hemoglobin [HGB] 11.2 g/dL (12.0-16.0); MEAN CORPUSCULAR HEMOGLOBIN 31.8 PG (27-31); MEAN CORPUSCULAR HGB CONC 33.4 g/dL (33-37); MEAN CORPUSCULAR VOLUME 95.2 FL (81-99); MEAN PLATELET VOLUME 9.9 FL (7.4-12.2); RED BLOOD COUNT 3.52 10^6/uL (4.20-5.40)
[2019-01-11 05:36] LABS: BLOOD UREA NITROGEN 18 mg/dL (7-22)
--- NOTE | 2019-01-11 06:38 | CRNA.PROGR ---
Anesthesia Note - Progress Notes Anesthesia Progress Note: spoke with RN last evening, pt was resting with BP in 80's asymptomatic. Stopped in this AM, pt is asleep, monitor shows BP in the 90's, VS WNL. Bharathi ORTIZ
[2019-01-11] MEDS: PANTOPRAZOLE 40 MG TABLET PO SCH (07:09)
[2019-01-11] MEDS: MAGNESIUM OXIDE 400 MG TABLET PO SCH (07:09)
--- NOTE | 2019-01-11 07:49 | ORTHO.PROG ---
Last Taken Vital Signs: Vital Signs - Last Taken Temperature 97.8 F 01/11/19 07:00 Pulse Rate 89 01/11/19 07:00 Respiratory Rate 16 01/11/19 07:00 Blood Pressure 94/60 01/11/19 07:00 Pulse Ox 94 01/11/19 07:00 Subjective: Patient notes no significant pain in the right hip or leg this morning, notes a little stiffness Objective: Examination shows that the dressing is in place clean and dry the drain is in place and working also., The negative pressure dressing is also in place. Patient denies any calf, popliteal, adductor hiatus or thigh pain. Patient is neurovascularly intact. Laboratory Results 01/10/19 01/10/19 01/10/19 06:51 11:00 13:58 WBC 9.51 RBC 4.12 L Hgb 11.1 L 13.0 Hct 33.9 L 39.1 MCV 94.9 MCH 31.6 H MCHC 33.2 RDW Std Deviation 46.7 RDW Coeff of Dena 13.8 Plt Count 141 MPV 9.0 Sodium Potassium Chloride Carbon Dioxide Anion Gap BUN Creatinine BUN/Creatinine Ratio Glucose Calculated Osmolality Calcium Triglycerides Cholesterol LDL Cholesterol, Calc VLDL Cholesterol HDL Cholesterol Cholesterol/HDL Ratio Blood Type A POSITIVE Antibody Screen Negative Crossmatch See Detail 01/10/19 01/10/19 01/10/19 16:45 17:00 20:05 WBC 10.28 RBC 4.14 L Hgb 13.0 13.2 Hct 38.9 39.5 MCV 95.4 MCH 31.9 H MCHC 33.4 RDW Std Deviation 48.8 RDW Coeff of Dena 14.3 Plt Count 141 MPV 9.9 Sodium Potassium Chloride Carbon Dioxide Anion Gap BUN Creatinine BUN/Creatinine Ratio Glucose Calculated Osmolality Calcium Triglycerides 58 Cholesterol 190 LDL Cholesterol, Calc 111.400 VLDL Cholesterol 11 HDL Cholesterol 67 Cholesterol/HDL Ratio 2.83 Blood Type Antibody Screen Crossmatch 01/11/19 01/11/19 04:20 04:20 WBC 9.18 RBC 3.52 L Hgb 11.2 L Hct 33.5 L MCV 95.2 MCH 31.8 H MCHC 33.4 RDW Std Deviation 46.9 RDW Coeff of Dena 14.0 Plt Count 136 L MPV 9.9 Sodium 133 L Potassium 5.2 Chloride 102 Carbon Dioxide 26 Anion Gap 5 BUN 18 Creatinine 0.5 BUN/Creatinine Ratio 36.00 H Glucose 136 H Calculated Osmolality 279.0 Calcium 8.7 Triglycerides Cholesterol LDL Cholesterol, Calc VLDL Cholesterol HDL Cholesterol Cholesterol/HDL Ratio Blood Type Antibody Screen Crossmatch Vital Signs (Last 8 hours) Temp Pulse Resp BP Pulse Ox 01/11/19 07:00 97.8 F 89 16 94/60 94 01/11/19 05:58 98/60 01/11/19 05:12 1 01/11/19 05:00 97.9 F 73 20 81/58 96 01/11/19 04:00 97/53 01/11/19 03:00 99/61 01/11/19 02:00 99/62 93 01/11/19 01:00 98.5 F 70 18 97/63 95 01/11/19 00:01 104/55 Intake and Output - 8hrs 01/10/19 01/10/19 01/11/19 01/11/19 13:59 21:59 05:59 13:59 Intake: IV 3250 / 5435 1017 / 5435 1168 / 5435 Intake Oral Amount 1240 / 1640 400 / 1640 Dinner 240 / 240 Intake, Blood Product Amount 450 / 450 Packed Red Bld Cells Unit 450 / 450 [id number] Output: Output, Drainage Amount 10 / 145 135 / 145 Right Hip 10 / 10 Output, Urinary Catheter Amount 50 / 400 350 / 400 Output, Urine Amount 450 / 450 Output, Post Indwelling 200 / 200 Catheter Insertion Output, Estimated Blood Loss 500 / 500 Amount Other: Percent Meal Consumed Dinner 100% Drains Hemovac Negative Pressure Drain Number of Voids 1 Weight 72.303 kg Weight Measurement Method Standing Scale Assessment: Right total hip replacement overall doing well Anemia Plan: Patient will continue with pain control with oral and IV medications as needed DVT prophylaxis with pneumatic sequentials and aspirin. Physical therapy and occupational therapy for mobilization. Patient will continue with the negative pressure dressing for a week.
[2019-01-11] MEDS ORDERED: LOSARTAN 25 MG TABLET PO SCH (09:00)
[2019-01-11] MEDS ORDERED: [UNRECOGNIZED DRUG - OTHER] PO SCH (09:00)
[2019-01-11] MEDS ORDERED: AmLODIPine Tab 2.5 MG TABLET PO SCH (09:00)
[2019-01-11] MEDS: ASPIRIN 325 MG EC TABLET PO SCH ×2 (09:22→20:31)
[2019-01-11] MEDS: DOCUSATE 100 MG CAPSULE PO SCH ×2 (09:22→20:31)
[2019-01-11] MEDS: Potassium Chloride Tab 10 MEQ TAB PO SCH (09:22)
[2019-01-11] MEDS: CHOLECALCIFEROL 1000 IU TABLET PO SCH ×2 (09:24→20:31)
[2019-01-11] MEDS: ASCORBIC ACID Chewable 500 MG TABLET PO SCH (09:24)
--- NOTE | 2019-01-11 09:28 | PTI REPORT ---
Thank you for the referral of Rocio Aly. She was seen on 01/10/19 for an inpatient evaluation status post right total hip replacement with an anterior approach. SUBJECTIVE: The patient is an 88-year-old female who underwent a right total hip replacement with an anterior approach earlier today. Per nursing report the patient is doing well but they state her blood pressures have been running in the 80s over 50s. We did get the verbal okay to sit the patient up and try standing, dependent on the patient's tolerance. They did state that the patient did receive a unit of blood following her surgery before she was brought up to the floor and with her last labs her H&H was within normal range. The patient reports 0/10 pain and she states she is looking forward to at least trying to move a little bit to see what she can do. The patient denies any lightheadedness or dizziness. The patient states that she lives by herself [place] The patient states that prior to her surgery she was independent with all ADLs and was ambulating without use of an assistive device; except when she would go out to the [place], she states that she used a single point cane on the uneven ground. The patient denies any falls over the last three months. The patient does state that once she is discharged from the hospital she will live with her son while she recovers initially. Her son is present during our initial evaluation and verifies the information. He states that they do have a ramp into the home along with stairs and everything is on one level within the home. PAST MEDICAL HISTORY: Past medical history can be found in the patient's medical record. OBJECTIVE FINDINGS: General observations: The patient is alert and oriented to setting upon PT arrival. The patient was on two liters of oxygen. She did have a drain and a Provera vac in place over her incision. She did have an IV in place and also a catheter. Bed mobility: The patient was able to move from supine to seated edge of bed position with min assist x1. Once in a seated position the patient's blood pressure was 89/56. Her oxygen saturation varied between 88-95% on two liters of oxygen. The patient denied any lightheadedness or dizziness with sitting and was able to sit edge of bed for a few minutes. Transfers: After sitting for approximately three minutes, the patient stated that she would like to try standing up. A gait belt was placed around the patient. She was instructed to kick out her surgery side. Before standing the patient was instructed on weight-bearing precautions per order from surgeon. The patient was able to perform sit to stand transfer with min assist x1 for safety. Once in a standing position, the patient denied any initial lightheadedness or dizziness. The patient's blood pressure was at 76/65. Due to the drop in blood pressure we did transition back to seated edge of bed followed by getting supine in bed with min assist x1 to help lift the right lower extremity. Before laying all the way supine, the patient was able to scoot up in bed with being seated edge of bed with verbal cues. ASSESSMENT: The patient has fair rehab potential secondary to her age and past medical history. Problem List: The patient is status post total hip replacement Decreased hip range of motion Decreased strength Decreased functional mobility Short-Term Goals: To be met by discharge from inpatient: Patient will be able to transfer from bed to stand safely and independently. Patient will be able to ambulate at least 150 feet safely and independently with standard walker. Patient will be able to ascend and descend at least three stairs safely and independently with standard walker. Long-Term Goals: To be met following discharge from inpatient: Patient may be seen by outpatient physical therapy if deemed necessary by the surgeon. The patient does live about an hour outside of [place], but she will go and stay with [place] while she does recover. TREATMENT PLAN: Patient will be seen B.I.D during the week and one time per day over the weekend as an inpatient to address the above goals and objectives. INITIAL TREATMENT: Treatment today consisted of the initial evaluation. Following treatment the patient was left in bed. The head of the bed was elevated and the patient's SCDs were placed back on. The patient's bed alarm was set and her call light was placed within reach. [facility]
--- NOTE | 2019-01-11 09:42 | PT.PROG ---
Progress Note Progress Note: S: pt reports she is doing well. no pain. hasn't been up yet O: nsg okay'd prior to treatment. pt on IV, drain, ball cath, 1 L O2. pt instructed to perform supine to sit transfer with HOB elevated>30 degrees with min assist x 1. pt instructed in sit to stand transfer CGA x 2 with walker. pt instructed to ambulate approx 8 feet with CGA x 2 and walker. pt instructed to perform stand to sit transfer with CGA x 1 and walker, min cues for technique. pt left in her chair with chair alarm activated and call light within reach. A: pt tolerated therapy well. able to transfer to chair today. pt continues to benefit from skilled therapy P: cont per POC
[2019-01-11] MEDS ORDERED: methylPREDNISolone 125 MG/2 ML VIAL IVP ONE (12:11)
--- NOTE | 2019-01-11 13:48 | PDOC(PROG) ---
Date of Service: 01/11/19 Time of Service: 13:45 Interval History: Patient seen and evaluated earlier today. No completes of chest pain, shortness breath, nausea or vomiting. States nausea from yesterday resolved. Not lightheaded. Patient and the family noticed the rash on her face. It is morbilliform. I think it is also present on her back. She has had increased pruritus. Objective : Data - Labs CBC and BMP: 01/11/19 04:20 01/11/19 04:20 Additional Lab Results: 01/10/19 16:45 Triglycerides 58 Cholesterol 190 LDL Cholesterol, Calc 111.400 VLDL Cholesterol 11 HDL Cholesterol 67 Cholesterol/HDL Ratio 2.83 Objective : Exam - General General Appearance: No Acute Distress, Cooperative Additional General Exam Details: Vital Signs - Last Taken Temperature 98.3 F 01/11/19 09:57 Pulse Rate 88 01/11/19 09:57 Respiratory Rate 16 01/11/19 09:57 Blood Pressure 110/61 01/11/19 09:57 Pulse Ox 97 01/11/19 09:57 - Eye Eye Exam: No Scleral Icterus - ENT ENT Exam: Mucous Membranes Moist - Neck Neck Exam: JVP is not Raised - Respiratory Respiratory Exam: Clear to Auscultation - Bilaterally, Breathing Non Labored - Cardiovascular Cardiovascular Exam: RRR, No Murmur, No Clicks, No Gallops, No Rubs, No JVD - GI/Abdominal GI/Abdominal Exam: Non Tender, Non Distended, Soft - Extremities Extremities Exam: No Clubbing Present, No Edema Present, No Cyanosis Present - Neurological Neurological Exam: Alert, Oriented x 3, No Facial Droop, Speech Intact / Clear - Integumentary Integumentary Exam: Erythema (Morbilliform rash on face and back, red and uniform. Consistent with drug reaction.) Assessment and Plan - Patient Problems (1) Adverse reaction to antibiotic Current Visit: Yes Status: Acute Code(s): T36.95XA - Adverse effect of unspecified systemic antibiotic, initial encounter (2) Postoperative hypotension Current Visit: Yes Status: Acute Code(s): I95.89 - Other hypotension (3) Arthritis of right hip Current Visit: Yes Status: Acute Code(s): M16.11 - Unilateral primary osteoarthritis, right hip (4) Chronic gastroesophageal reflux disease Current Visit: Yes Status: Chronic Code(s): K21.9 - Gastro-esophageal reflux disease without esophagitis (5) Status post right hip replacement Current Visit: Yes Status: Acute Code(s): Z96.641 - Presence of right artificial hip joint (6) Hypertension Current Visit: Yes Status: Chronic Code(s): I10 - Essential (primary) hypertension Qualifiers: Hypertension type: essential hypertension Qualified Code(s): I10 - Essential (primary) hypertension - Assessment / Plan Additional Assessment/Plan Details: At this point, I think the patient is having an allergic reaction to Ancef. We'll give her Benadryl for pruritus and also give a dose of Solu-Medrol, 125 mg. May complete a Medrol Dosepak. Benadryl when necessary pruritus. Stop Ancef. List as allergy. Labs in a.m. Despite blood loss in surgery, hemoglobin and hematocrit and been staying steady, and I do not think the patient needs a blood transfusion today. Blood pressures are starting to improve. Hold off on antihypertensives for now. DVT prophylaxis as per orthopedics. PT and OT.
[2019-01-11] MEDS ORDERED: METHYLPREDNISOLONE 4 MG TAB DOSE PACK(DAY 1 0700) PO SCH (14:00)
--- NOTE | 2019-01-11 14:24 | OTI REPORT ---
Thank you for the referral of Rocio Aly. She was seen on 01/11/19 for an occupational therapy inpatient evaluation status post right total hip arthroplasty. SUBJECTIVE: The patient is an 88-year-old female who had an anterior hip replacement. [place] Overall the patient tends to do very well. 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 The patient will more than likely be going home with her daughter for a few weeks and then going home by herself once she gets better. PAST MEDICAL HISTORY: Past medical history can be found in the patient's medical record. OBJECTIVE FINDINGS: General observations: The patient was educated in anterior hip precautions including no straight legs or over extension of the hip. Activities of daily living: The patient did have some pain with bending so we did go over adaptive devices including field services director, sock aide, and bath sponge. The patient was able to use the field services director to doff her socks and to don shorts. The patient used the sock aide to don socks. The patient did all of this with verbal cues and a little bit of assistance to use the sock aide and the field services director. The patient was educated in the use of bath sponge. She does have a shower chair and the patient's daughter stated they do have some handles that they will borrow from a family member to place around the toilet that they have at home. They did not want a shower chair or a high rise toilet seat at this time. The patient was able to sit edge of bed x6 minutes to complete hygiene activities independently after set up. Transfers: The patient was able to complete sit to stand transfer with min assist. She needed verbal cues in order to push off the chair. The patient then transferred into bed. We educated the patient how to hook her left ankle around her right ankle to get into bed and complete a log roll. Bed mobility: The patient was able to complete bed mobility with min assist. She needed min assist to move her right lower extremity into bed. ASSESSMENT: Problem List: Decreased ability to complete ADLs Decreased ability to complete functional transfers Short-Term Goals: To be met by discharge from inpatient: Patient will be able to dress self with modified independence with use of adaptive devices. Patient will be able to complete all functional transfers independently. Patient will be able to complete bed mobility independently. Patient will be able to complete toilet transfers and toilet hygiene independently. Long-Term Goals: To be met following discharge from inpatient: Patient will return home demonstrating safety and independence with all functional transfers and ADLs. TREATMENT PLAN: Patient will be seen B.I.D during the week and one time per day over the weekend as an inpatient to address the above goals and objectives. INITIAL TREATMENT: Treatment today consisted of the initial evaluation followed by the patient being educated in and issued adaptive devices for lower extremity dressing. The patient practiced doffing and donning socks and donning shorts. The patient then transferred from the chair to the bed. While sitting edge of bed the patient completed hygiene activities including brushing teeth, brushing hair, and washing face. The patient then required min assist to move right lower extremity into bed into a supine position. The patient was left in bed with bed alarm set and call light within reach. [facility]
[2019-01-11] MEDS: ACETAMINOPHEN 325 MG TABLET PO PRN ×2 (15:45→20:29)
--- NOTE | 2019-01-11 15:51 | PT.PROG ---
Progress Note Progress Note: S. Patient stated that she is feeling stiff and sore this afternoon. O. Patient ambulated 75 feet in the brown and back to her room where she was left at the edge of bed with alarm and call light. A. Patient tolerated ambulation well. She was able to ambulate with min assist, she would continue to benefit from skilled therapy to increase strength, mobility and safety at this time. P. Continue POC.
[2019-01-11] MEDS ORDERED: METHYLPREDNISOLONE 4 MG TAB DOSE PACK(DAY 1-3 1730) PO SCH (17:30)
[2019-01-11] MEDS: Multivitamin Tab 1 TAB PO SCH (20:31)
[2019-01-11] MEDS ORDERED: BILBERRY FRUIT EXTRACT PO SCH (21:00)
[2019-01-11] MEDS ORDERED: LIPOIC ACID PO SCH (21:00)
[2019-01-11] MEDS ORDERED: METHYLPREDNISOLONE 4 MG TAB DOSE PACK(DAY 1-2 2100) PO SCH (21:00)
[2019-01-11] MEDS ORDERED: OMEGA Q PLUS PO SCH (21:00)
[2019-01-12] MEDS: ACETAMINOPHEN 325 MG TABLET PO PRN ×6 (00:22→23:56)
[2019-01-12 04:54] LABS: Hematocrit [HCT] 29.8 % (37.0-47.0); MEAN CORPUSCULAR HEMOGLOBIN 32.2 PG (27-31); MEAN CORPUSCULAR HGB CONC 33.6 g/dL (33-37); MEAN CORPUSCULAR VOLUME 95.8 FL (81-99); MEAN PLATELET VOLUME 10.1 FL (7.4-12.2); RED BLOOD COUNT 3.11 10^6/uL (4.20-5.40)
[2019-01-12 05:17] LABS: BLOOD UREA NITROGEN 15 mg/dL (7-22)
[2019-01-12] MEDS ORDERED: METHYLPREDNISOLONE 4 MG TAB DOSE PACK(DAY 2-6 0700) PO SCH (07:00)
[2019-01-12] MEDS ORDERED: METHYLPREDNISOLONE 4 MG TAB DOSE PACK(DAY 1 0700) PO SCH (07:00)
[2019-01-12] MEDS: ASPIRIN 325 MG EC TABLET PO SCH ×2 (08:46→20:16)
[2019-01-12] MEDS: MAGNESIUM OXIDE 400 MG TABLET PO SCH ×3 (08:46→17:05)
[2019-01-12] MEDS: CHOLECALCIFEROL 1000 IU TABLET PO SCH ×2 (08:47→20:16)
[2019-01-12] MEDS: DOCUSATE 100 MG CAPSULE PO SCH ×2 (08:47→21:25)
[2019-01-12] MEDS: ASCORBIC ACID Chewable 500 MG TABLET PO SCH (08:47)
[2019-01-12] MEDS: PANTOPRAZOLE 40 MG TABLET PO SCH (08:48)
[2019-01-12] MEDS: Potassium Chloride Tab 10 MEQ TAB PO SCH ×2 (08:48→09:31)
[2019-01-12] MEDS ORDERED: METHYLPREDNISOLONE 4 MG TAB DOSE PACK PO ONE (08:48)
[2019-01-12] MEDS ORDERED: METHYLPREDNISOLONE 4 MG TAB DOSE PACK PO SCH (09:00)
--- NOTE | 2019-01-12 09:24 | ORTHO.PROG ---
Last Taken Vital Signs: Vital Signs - Last Taken Temperature 97.4 F 01/12/19 07:42 Pulse Rate 77 01/12/19 07:42 Respiratory Rate 77 H 01/12/19 07:42 Blood Pressure 119/79 01/12/19 07:42 Pulse Ox 98 01/12/19 07:42 Subjective: Patient doing well this morning is taken no pain medications except for Tylenol Objective: The leg with no significant swelling she has no calf, popliteal, adductor hiatus, thigh pain. Her negative pressure dressing is in place with no active issues. There is no significant swelling. Patient with good pulses brisk refill nonfocal neurologic exam. Intake and Output - 8hrs 01/11/19 01/11/19 01/12/19 01/12/19 13:59 21:59 05:59 13:59 Intake: Intake Oral Amount 376 / 1926 1350 / 1926 200 / 1926 Dinner 120 / 120 Lunch 256 / 256 Output: Output, Urinary Catheter Amount 700 / 700 Output, Urine Amount 300 / 300 Other: Percent Meal Consumed Dinner 100% 100% Lunch 100% Number of Voids 1 Weight 77.201 kg 78.925 kg Laboratory Results 01/12/19 01/12/19 04:22 04:22 WBC 11.32 H RBC 3.11 L Hgb 10.0 L Hct 29.8 L MCV 95.8 MCH 32.2 H MCHC 33.6 RDW Std Deviation 45.8 RDW Coeff of Dena 13.7 Plt Count 125 L MPV 10.1 Sodium 132 L Potassium 4.8 Chloride 102 Carbon Dioxide 28 Anion Gap 2 L BUN 15 Creatinine 0.5 BUN/Creatinine Ratio 30.00 H Glucose 109 Calculated Osmolality 275.0 Calcium 8.7 Vital Signs (24 hrs) 01/11/19 09:57 01/11/19 13:00 01/11/19 16:51 Temperature 98.3 F 97.9 F 98.5 F Pulse Rate [Pulse Oximeter] 88 99 90 Respiratory Rate 16 16 12 Blood Pressure [Left Arm] 110/61 121/70 Blood Pressure [Right Arm] 127/74 Pulse Ox 97 95 95 01/11/19 19:52 01/12/19 00:22 01/12/19 04:39 Temperature 98.5 F 98.7 F 97.5 F Pulse Rate [Pulse Oximeter] 90 89 82 Respiratory Rate 20 18 18 Blood Pressure [Left Arm] 116/73 114/67 108/90 Blood Pressure [Right Arm] Pulse Ox 94 96 96 01/12/19 05:00 01/12/19 07:42 Temperature 97.4 F Pulse Rate [Pulse Oximeter] 77 Respiratory Rate 77 H Blood Pressure [Left Arm] 119/79 Blood Pressure [Right Arm] Pulse Ox 97 98 Assessment: Right total hip replacement doing well Anemia we'll continue to follow serial blood draws Plan: Patient will continue with physical therapy and occupational therapy, patient will continue with DVT prophylaxis with aspirin as a pneumatic sequentials. Patient has oral and IV pain medication available.
--- NOTE | 2019-01-12 10:55 | OT.PROG ---
Progress Note Progress Note: S: pt stated that she was feeling good today and agreed to therapy services. O: tx consisted of completion of ADL tasks. pt completed STS x1 and completed standing toilet hygiene independently with CGA for safety and donned underwear independently. pt then transferred to sink with use of walker and completed standing ADL tasks of hand washing and brushing hair independently. pt completed functional transfer to chair where she performed dressing tasks. pt completed doffing of socks and underwear with SBA for safety and use of line appliance assembler for socks. pt completed seated UE dressing independently and LE dressing of underwear and pants with use of line appliance assembler. pt completed donning of LE socks with use of sock aide independently. pt completed STS x1 to finish donning pants independently. pt completed functional ambulation x 35' with walker and CGA for safety. A: pt tolerated session well and is independent at this time in ADLs. P: continue POC
--- NOTE | 2019-01-12 11:39 | PT.PROG ---
Progress Note Progress Note: S. Patient stated that she is feeling good this morning. O. Patient was wheeled to the therapy gym where she had heat to her hip then performed heel slides, quad sets, ankle pumps, short arc quads, seated heel toe raises and sit to stands all x 10. Patient then ambulated 90 feet to the wheelchair and was returned to her room where she was left with alarm and call light. A. Patient tolerated therapy well, she was able to perform all exercises with no pain or problems. Patient would continue to benefit from skilled therapy to increase strength, endurance and safety at this time. P. Continue POC.
[2019-01-12] MEDS: METHYLPREDNISOLONE 4 MG TAB DOSE PACK(DAY 1-4 1230) PO SCH (12:00)
[2019-01-12] MEDS ORDERED: METHYLPREDNISOLONE 4 MG TAB DOSE PACK(DAY 1-4 1230) PO SCH (12:00)
--- NOTE | 2019-01-12 14:18 | PDOC(PROG) ---
Date of Service: 01/12/19 Time of Service: 14:15 Interval History: Patient seen and examined earlier today. Rash has resolved. No chest pain, shortness breath, or nausea or vomiting. States that her hip is sore, but pain is well controlled. Her planned postoperatively and post hospital stay is to stay with her son who lives [place]. Objective : Data - Labs CBC and BMP: 01/12/19 04:22 01/12/19 04:22 Objective : Exam - General General Appearance: No Acute Distress, Cooperative Additional General Exam Details: Vital Signs - Last Taken Temperature 97.1 F 01/12/19 11:31 Pulse Rate 74 01/12/19 11:31 Respiratory Rate 18 01/12/19 11:31 Blood Pressure 107/86 01/12/19 11:31 Pulse Ox 94 01/12/19 11:31 - Eye Eye Exam: No Scleral Icterus - ENT ENT Exam: Mucous Membranes Moist - Neck Neck Exam: JVP is not Raised - Respiratory Respiratory Exam: Clear to Auscultation - Bilaterally, Breathing Non Labored - Cardiovascular Cardiovascular Exam: RRR, No Murmur, No Clicks, No Gallops, No Rubs, No JVD - GI/Abdominal GI/Abdominal Exam: Normal Bowel Sounds, Non Tender, Non Distended, Soft - Extremities Extremities Exam: No Clubbing Present, No Edema Present, No Cyanosis Present - Neurological Neurological Exam: Alert, Oriented x 3, No Facial Droop, Speech Intact / Clear - Psychiatric Psychiatric Exam: Normal Affect, Normal Mood Assessment and Plan - Patient Problems (1) Adverse reaction to antibiotic Current Visit: Yes Status: Acute Code(s): T36.95XA - Adverse effect of u nspecified systemic antibiotic, initial encounter (2) Postoperative hypotension Current Visit: Yes Status: Acute Code(s): I95.89 - Other hypotension (3) Arthritis of right hip Current Visit: Yes Status: Acute Code(s): M16.11 - Unilateral primary osteoarthritis, right hip (4) Chronic gastroesophageal reflux disease Current Visit: Yes Status: Chronic Code(s): K21.9 - Gastro-esophageal reflux disease without esophagitis (5) Status post right hip replacement Current Visit: Yes Status: Acute Code(s): Z96.641 - Presence of right artificial hip joint (6) Hypertension Current Visit: Yes Status: Chronic Code(s): I10 - Essential (primary) hypertension Qualifiers: Hypertension type: essential hypertension Qualified Code(s): I10 - Essential (primary) hypertension - Assessment / Plan Additional Assessment/Plan Details: I'll continue Medrol Dosepak for the adverse reaction. There are sometimes delayed reactions when there is an allergic reaction. When necessary Benadryl for pruritus or itching. I would still recommend holding off of antihypertensives given blood pressures at this time. She is no longer hypotensive which is reassuring. DVT prophylaxis as per orthopedics. PT and OT.
--- NOTE | 2019-01-12 16:12 | PT.PROG ---
Progress Note Progress Note: S. Patient stated she is tired this afternoon, however agreed to go to the therapy gym. O. Patient ambulated 80 feet to the wheelchair and was wheeled to the therapy gym where she had heat to her hip and performed heel slides, quad sets, ankle pumps, short arc quads, seated long arc quads, heel toe raises and sit to stands all x 10, box step ups with #2 box x 10. Patient then ambulated 60 feet to the wheelchair and was returned to her room where she was left in the restroom and nursing was notified. A. Patient tolerated therapy well, she continues to make gains with strength and mobility, she would benefit from continued therapy to increase strength and endurance at this time. P. Continue POC.
[2019-01-12] MEDS ORDERED: Potassium Chloride Tab 10 MEQ TAB PO SCH (17:00)
[2019-01-12] MEDS ORDERED: METHYLPREDNISOLONE 4 MG TAB DOSE PACK(DAY 1-3 1730) PO SCH (17:30)
[2019-01-12] MEDS: Multivitamin Tab 1 TAB PO SCH (20:16)
[2019-01-12] MEDS ORDERED: METHYLPREDNISOLONE 4 MG TAB DOSE PACK(DAY 1-2 2100) PO SCH (21:00)
[2019-01-13 05:52] LABS: Hematocrit [HCT] 33.1 % (37.0-47.0); Hemoglobin [HGB] 10.9 g/dL (12.0-16.0); MEAN CORPUSCULAR HEMOGLOBIN 31.5 PG (27-31); MEAN CORPUSCULAR HGB CONC 32.9 g/dL (33-37); MEAN CORPUSCULAR VOLUME 95.7 FL (81-99); MEAN PLATELET VOLUME 10.1 FL (7.4-12.2); RED BLOOD COUNT 3.46 10^6/uL (4.20-5.40)
[2019-01-13 06:13] LABS: BLOOD UREA NITROGEN 14 mg/dL (7-22)
[2019-01-13] MEDS ORDERED: METHYLPREDNISOLONE 4 MG TAB DOSE PACK(DAY 2-6 0700) PO SCH (07:00)
[2019-01-13] MEDS: PANTOPRAZOLE 40 MG TABLET PO SCH (07:26)
[2019-01-13 08:34] VITALS: RESP 16
[2019-01-13] MEDS: ASPIRIN 325 MG EC TABLET PO SCH (08:44)
[2019-01-13] MEDS: CHOLECALCIFEROL 1000 IU TABLET PO SCH (08:44)
[2019-01-13] MEDS: DOCUSATE 100 MG CAPSULE PO SCH (08:45)
[2019-01-13] MEDS: ASCORBIC ACID Chewable 500 MG TABLET PO SCH (08:45)
[2019-01-13] MEDS: MAGNESIUM OXIDE 400 MG TABLET PO SCH ×2 (08:51→13:15)
--- NOTE | 2019-01-13 09:58 | OT.PROG ---
Progress Note Progress Note: S: pt stated that she wanted to take a shower. O: tx consisted of functional ambulation x 75' x2 with walker and SBA fro safety. pt completed showering tasks while standing with no losses of balance. during shower pt washed anterior and posterior body independently. pt was able to dry her whole body other than her lower legs independently because of hip precautions. pt completed LE dressing seated and stood to carlos pants independently. pt was able to completed UE dressing standing independently with no losses of balance. A: pt tolerated session well and is independent in ADL tasks. P: continue POC
[2019-01-13 11:46] VITALS: BP 144/89; TEMP 98.3; O2SAT 98
[2019-01-13] MEDS: METHYLPREDNISOLONE 4 MG TAB DOSE PACK(DAY 1-4 1230) PO SCH (12:29)
--- NOTE | 2019-01-13 12:30 | DCSUMMARY ---
Hospitalization Summary Hospital Course: Final Discharge Diagnosis: Current Visit Problems Problem Status Onset Code Postoperative hypotension Acute I95.89 Arthritis of right hip Acute M16.11 Status post right hip replacement Acute Z96.641 Adverse reaction to antibiotic Acute T36.95XA Chronic gastroesophageal reflux disease Chronic K21.9 Hypertension Chronic I10 Diagnostic Data, Laboratory Data, and Procedures of Signifigance: CBC and BMP 01/13/19 05:15 01/13/19 05:15 History and Physical pertinent to Admission: Past Medical History Medical History: 1. Hypertension. 2. Osteoporosis. 3. Hyperlipidemia. 4. Macular degeneration. 5. Heart murmur. 6. Osteoarthritis, specifically right hip, status post total hip arthroplasty today. 7. History of compression fracture in her back. 8. History of C. difficile colitis Surgical History: 1. Cataract surgery, bilateral. 2. History of wrist fractu re, bilateral. Status post pinning. 3. Esophagogastroduodenoscopy with biopsy and dilation. Patient had a food bolus in 2018. 4. Right hip arthroplasty today Family History: Reviewed an Not Pertinent Pertinent Family History: No history of diabetes or heart disease in the family per the patient's history. Past Social History: She lives by herself, doesn't smoke doesn't drink. She is independent with her activities. [place] She had 4 children described as healthy. She states just that she is full code. Tobacco Use: Never Smoker Course of Hospitalization: This very nice 88-year-old female with the right hip osteoarthritis, failed conservative measures and opted for right hip replacement by Dr. Hays hospitalist service is following the patient postop patient is doing great today she has no complaints no nausea no vomiting received some fluids on the floor blood pressures her medications were held today her blood pressures back to her normal range in the 140 systolic and she will be resuming her blood pressure medication at home all postop instructions and pain control defer to Dr. Hays patient will be discharged home after his evaluation and decision On the date of discharge, the patient was examined: Gen.: [No acute distress, alert, nontoxic] Heart: [Regular rate and rhythm, no murmurs, clicks, gallops, or rubs] Lungs: [Clear to auscultation bilaterally, breathing is nonlabored] Abdomen/GI: [Normal tones on auscultation, soft, nontender, nondistended] Musculoskeletal/extremities: [No clubbing, cyanosis, or edema] Vitals reviewed and are listed below Vital Signs (24 hrs) 01/12/19 17:00 01/12/19 20:07 01/12/19 23:48 Temperature 97.6 F 97.8 F 97.7 F Pulse Rate [Pulse Oximeter] 79 60 83 Respiratory Rate 16 18 20 Blood Pressure [Left Arm] 133/70 163/83 Blood Pressure [Right Arm] 105/74 Pulse Ox 94 93 93 01/13/19 04:19 01/13/19 08:33 01/13/19 11:45 Temperature 98.1 F 97.1 F 98.3 F Pulse Rate [Pulse Oximeter] 73 78 80 Respiratory Rate 21 16 16 Blood Pressure [Left Arm] 136/78 144/89 Blood Pressure [Right Arm] 137/77 Pulse Ox 93 93 98 Assessment and Plan: 1. As per discharge assessments above 2. Disposition: Home 3. Condition on discharge, stable and improved. 4. Diet: regular diet 5. Activities: resume normal activities 6. Follow-Up: 1. [PCP] 2. With Dr. Hays as scheduled by himself 7. Medications at the Time of Discharge: Home Medications Medication Instructions Recorded Confirmed Type Alpha Lipoic Acid 300 mg PO DAILY cap 12/27/12 01/09/19 History Flaxseed 340 gm PO DAILY sc 12/27/12 01/09/19 History Multivitamin [Daily Vitamin] 1 tab ORAL QAM tab 12/27/12 01/12/19 History Ubidecarenone [Coq-10] 30 mg PO DAILY cap 12/27/12 01/09/19 History Cholecalciferol (Vitamin D3) 2,000 unit PO BID #0 cap 04/03/16 01/09/19 History [Vitamin D3] Lutein 20 mg PO BID #0 cap 04/03/16 01/09/19 History Bilberry Fruit Extract [Bilberry] 80 mg PO DAILY cap 05/21/16 01/09/19 History Magnesium 250 mg PO BID tab 06/04/17 01/12/19 History Potassium 1 tab PO QPM tab 06/04/17 01/12/19 History losartan 25 mg tablet 25 mg PO QDAY #90 tab 11/28/18 01/10/19 Rx pantoprazole 40 mg tablet,delayed 20 mg PO .QOD tab 11/28/18 01/09/19 History release Amlodipine Besylate 2.5 mg PO DAILY 01/09/19 01/10/19 History Ascorbic Acid [Vitamin C] 500 mg PO BID 01/12/19 01/12/19 History Polyvinyl Alcohol [Artificial 2 drp EACH EYE PRN 01/12/19 01/12/19 History Tears] Aspirin EC 325 mg PO BID tab 01/13/19 Rx HYDROcodone/APAP 7.5/325 Tab 1 - 2 tab PO Q4H PRN #30 tab 01/13/19 Rx [[place] 7.5/325 Tab] methylPREDNISolone Dose Pack 4 mg PO BEDTIME #1 vic 01/13/19 Rx [Medrol Dose Pack] 8. Time, care, counseling and coordination of care for this discharge is greater than 30 minutes. Exam - Vitals Vital Signs: Vital Signs Temperature 98.3 F Temperature Source Temporal Artery Scan Pulse Rate [Pulse Oximeter] 80 Pulse Rate [Apical] 61 Pulse Rate 68 Respiratory Rate 16 Blood Pressure [Left Arm] 144/89 Blood Pressure [Right Arm] 137/77 Blood Pressure 82/51 Pulse Ox 98 Oxygen Flow Rate 1 Oxygen Delivery Method Room Air Height 5 ft 2 in Weight 171 lb 9.6 oz
--- NOTE | 2019-01-13 12:41 | PT.PROG ---
Progress Note Progress Note: S: Pt. states she is doing well today. O: Treatment consisted of functional activities: she was transported down to PT where she received moist heat to hip followed by saq, hip ab/ad, ankle pumps, sit to stands x 10, stair climbing x 3 and ambulated with walker. A: Pt. continues to do well with exercises and activities. She is progressing well towards goals and should do well upon d/c. P: Continue per POC to increase strength and activity tolerance. Esthela gong, [employer]
--- NOTE | 2019-01-13 15:33 | ORTHO.PROG ---
Last Taken Vital Signs: Vital Signs - Last Taken Temperature 98.3 F 01/13/19 11:45 Pulse Rate 80 01/13/19 11:45 Respiratory Rate 16 01/13/19 11:45 Blood Pressure 144/89 01/13/19 11:45 Pulse Ox 98 01/13/19 11:45 Subjective: Patient doing well would like to go home, denies any pain she has not taken any pain medication other than Tylenol for her total hip replacement Objective: Examination of the right leg shows that the negative pressure dressing is place it is working fine minimal swelling, popliteal adductor hiatus or thigh pain. Good motor and sensory exam lower extremities. No significant edema. Laboratory Results 01/13/19 01/13/19 05:15 05:15 WBC 10.98 H RBC 3.46 L Hgb 10.9 L Hct 33.1 L MCV 95.7 MCH 31.5 H MCHC 32.9 L RDW Std Deviation 45.1 RDW Coeff of Dena 13.5 Plt Count 156 MPV 10.1 Sodium 134 L Potassium 4.2 Chloride 101 Carbon Dioxide 28 Anion Gap 5 BUN 14 Creatinine 0.5 BUN/Creatinine Ratio 28.00 H Glucose 106 Calculated Osmolality 278.0 Calcium 9.1 Vital Signs (24 hrs) 01/12/19 17:00 01/12/19 20:07 01/12/19 23:48 Temperature 97.6 F 97.8 F 97.7 F Pulse Rate [Pulse Oximeter] 79 60 83 Respiratory Rate 16 18 20 Blood Pressure [Left Arm] 133/70 163/83 Blood Pressure [Right Arm] 105/74 Pulse Ox 94 93 93 01/13/19 04:19 01/13/19 08:33 01/13/19 11:45 Temperature 98.1 F 97.1 F 98.3 F Pulse Rate [Pulse Oximeter] 73 78 80 Respiratory Rate 21 16 16 Blood Pressure [Left Arm] 136/78 144/89 Blood Pressure [Right Arm] 137/77 Pulse Ox 93 93 98 Assessment: Right total hip replacement doing well Anemia stable Plan: Patient is going to be discharged home she will continue to wear the negative pressure dressing until Wednesday or Wednesday when will be changed out for Silverlon dressing. We've instructed on how to remove the negative pressure dressing and place the Silverlon dressing. Keep clean and dry touch toe weightbearing with walker for next 2 weeks then we will slowly wean to a cane. We are sending her home with portable pneumatic sequential devices to utilize maximum amount allowed based on charges of the battery per day. Patient will follow-up accordingly. Has a postoperative appointment set call for any issues
--- NOTE | 2019-01-13 16:36 | PT.PROG ---
Progress Note Progress Note: S. Patient stated that she is feeling good and would like to go home. O. Patient ambulated 150 feet around the nurses station, and was left in the restroom and nursing was notified. A. patient tolerated ambulation well, she was able to ambulate independently. P. Patient has met all goals at this time.
[2019-01-13] MEDS ORDERED: METHYLPREDNISOLONE 4 MG TAB DOSE PACK(DAY 3-5 2100) PO SCH (21:00)
[2019-01-14] MEDS ORDERED: METHYLPREDNISOLONE 4 MG TAB DOSE PACK(DAY 3-5 2100) PO SCH (21:00)
== END 2019-01-13 15:55 | disposition home or self-care (01) | DRG 470 ==
LOC: OPS 06:11 → MED/SURG 12:46
PROVIDERS: ADMIT Orthopaedic Surgery; ATTEND Orthopaedic Surgery